=== PATIENT | male | born 1940 | race Caucasian/White ===

== ENCOUNTER 2021-01-17 21:42 | Emergency (ER) | payer MEDICARE, SELFPAY ==
[2021-01-17 22:09] VITALS: BP 128/75; PULSE 77; RESP 18; TEMP 36.9; O2SAT 97; BMI 28.6
--- NOTE | 2021-01-17 22:17 | XRR_ITS ---
PROCEDURE INFORMATION: Exam: XR Left Hand Exam date and time: 01/17/2021 10:17 PM Age: 80 years old Clinical indication: Injury or trauma; Other: Cut hand with saw; Left; Injury details: Laceration on thumb; Additional info: Laceration to top of hand TECHNIQUE: Imaging protocol: XR Left hand. Views: 3 or more views. COMPARISON: No relevant prior studies available. FINDINGS: Bandage obscures some of the bony detail of the thumb. There are degenerative changes involving the DIP joints, PIP joints and MCP joint. There are degenerative changes of the 1st carpal metacarpal joint. There is an ulnar minus variance. There is mild narrowing of the radiocarpal joint. No acute fracture is identified. There is no foreign body. XR/XR hand LT min 3V* [id number] IMPRESSION: 1. No fracture or foreign body. 2. Marked arthritic changes.
--- NOTE | 2021-01-17 22:22 | W.ED.WOUNDLC ---
HPI - Wound/Laceration General: Chief Complaint: Wound/Laceration Stated Complaint: LEFT HAND LAC Time Seen by Provider: 01/17/21 21:44 History of Present Illness: HPI narrative: Patient is a 80-year-old male comes to the ED with a left hand laceration. Injury occurred approximately 2.5 hours before arrival. Patient says he was using a concrete saw and accidentally cut the top of dorsal aspect left hand base of thumb area. Patient describes his pain is mild. Patient is on Xarelto but says he was able to get bleeding controlled before coming to the ED. patient says he is not up-to-date on his tetanus. Associated symptoms: Denies chills, fever(s), nausea or vomiting Review of Systems Const: Denies: fever(s), chills or fatigue Eyes: Denies: change in vision or eye discomfort ENMT: Denies: throat pain, odynophagia, nasal discharge or nasal congestion Card: Denies: chest pain, palpitations, edema, swelling of feet/ankles, dyspnea on exertion or orthopnea Resp: Denies: dyspnea, productive cough or non-productive cough GI: Denies: abdominal pain, nausea, vomiting, diarrhea, constipation or hematochezia : Denies: flank pain, difficulty urinating, dysuria or hematuria Musc: Denies: neck pain, back pain or extremity swelling Skin/Breast: Reports: new lesions (Laceration to left hand); Denies: rash Neuro: Denies: headache(s), numbness in extremities or weakness in extremities Physical Exam Const: COMMON NORMALS: no acute distress, patient oriented x3 and alert GENERAL APPEARANCE: cooperative and comfortable HENMT: COMMON NORMALS: normocephalic HEAD & SCALP: normocephalic MOUTH: Normal oral and palatal mucosa present THROAT: posterior oropharynx normal and uvula midline Neck/C-Spine: COMMON NORMALS: supple GENERAL: Yes normal visual inspection Resp: COMMON NORMALS: normal respiratory effort, No retractions, No use of accessory muscles and clear to auscultation bilaterally AUSCULTATION: clear to auscultation bilaterally Cardio: COMMON NORMALS: regular rate, regular rhythm, S1 normal heart sound present, S2 normal heart sound present, No gallops present (Cardio), No clicks present (Cardio), No murmurs present (Cardio) and Peripheral pulses 2+ throughout RATE: regular rate RHYTHM: regular rhythm HEART SOUNDS: S1 normal heart sound present and S2 normal heart sound present PERIPHERAL PULSES: Peripheral pulses 2+ throughout GI: COMMON NORMALS: Normal to inspection, nondistended, normoactive bowel sounds present, Soft to palpation, non-tender and no masses PALPATION: Yes Soft to palpation : COMMON NORMALS: Yes no CVA tenderness BLADDER/KIDNEY EXAM: Yes no CVA tenderness Back/Pelvis: COMMON NORMALS: no CVA tenderness Extremity: NARRATIVE EXTREMITY EXAM: Left hand shows a laceration at the dorsal aspect of base of left thumb. Laceration appears superficial and is approximately 2 cm in length and 1 cm in width. No active bleeding noted. Laceration appears superficial. Patient's neurovascular intact. Patient was able to flex thumb but was unable to extend it. Extensor pollicis brevis tendon likely damaged. GENERAL: Yes normal exam except as noted Neuro: COMMON NORMALS: patient oriented x3 and moves all extremities SENSORIUM/ORIENTATION: Yes alert Skin: NARRATIVE SKIN EXAM: Left hand shows a laceration at the dorsal aspect of base of left thumb. Laceration appears superficial and is approximately 2 cm in length and 1 cm in width. No active bleeding noted. Laceration appears superficial. Patient's neurovascular intact. Patient was able to flex thumb but was unable to extend it. GENERAL SKIN EXAM: dry skin Procedures Laceration Laceration 1: Site: hand (dorsal aspect on base of thumb) Side (If applicable): left Size (cm): 2 Description: irregular (2 cm x 1 cm rectangle shape) and clean Depth: simple, single layer and involves tendon (no visible tendon seen, but pt cannont extend thumb-possible extensor tendon damage) Local Anesthetic: lidocaine 1% and with epi Amount of anesthesia used (mL): 10 Pre-repair: irrigated extensively (With normal saline and cleaned with iodine swab) Skin layer closed with: nylon Size (cm): 4-0 Number of sutures: 8 Technique: simple, interrupted Course Vital Signs: Vital signs: Vital Signs Temperature 98.5 F 01/17/21 22:09 Pulse Rate 77 01/17/21 22:09 Respiratory Rate 18 01/17/21 22:09 Blood Pressure 128/75 01/17/21 22:09 Pulse Oximetry 97 01/17/21 22:09 MDM - Wound/Laceration MDM Narrative: Medical decision making narrative: Patient is a 80-year-old male who comes to the ED with a laceration to left hand. Laceration is about 2 cm wide by 1 cm in width and is at the base of left thumb. There is no active bleeding noted and no visible tendon laceration seen, but patient is unable to extend thumb so likely damage to Extensor pollicis brevis tendon. X-ray of left hand shows no acute fractures or foreign body seen. Laceration to left hand was irrigated extensively with normal saline and skin was cleaned with iodine wash. Lidocaine 1% with epi was used as local and 8 sutures were placed to close laceration. Patient was then put in a thumb spica splint. Patient is from the [place] area and will be going back to [place] tomorrow. He has an orthopedic doctor there that he would like to see. He said he will contact them tomorrow morning to get set up an appointment to be evaluated for tendon damage and thumb. I stressed with patient to contact his PCP or Ortho tomorrow morning to set up an appointment for his tendon in the left thumb to be evaluated ALDO. He was also discharged home with cephalexin as prophylactic treatment for deep pain in the leg. Patient understood and agreed with plan. Imaging Data^: Xray Ortho: Attestation: I personally reviewed and interpreted this imaging study as follows: My impression: Left hand x-ray?no visible fractures noted. No foreign body seen. Discharge Plan Discharge Patient Disposition: Home Clinical Impression: Hand laceration involving tendon Qualifiers: Encounter type: initial encounter Laterality: left Qualified Code(s): S61.412A - Laceration without foreign body of left hand, initial encounter Condition: Stable Prescriptions: New cephalexin 500 mg capsule 500 mg PO Q6H 7 Days Qty: 28 RF: 0 Discharge Orders: Discharge ED (Routine); Ordered 01/17/21 Ordered By: Justin Elkins Discharge Diet: Regular Discharge Activity: Limit activity as instructed Patient Instructions: Laceration (ED) Activity Restrictions/Additional Instructions: Contact your PCP or Ortho in [place] tomorrow morning to get an appointment set up for evaluation of damaged thumb tendon (extensor pollicis brevis tendon). take full course of antibiotics as prescribed. Keep laceration site clean and dry for the next 48 hours. Then after that you can clean and re-bandage daily. Watch for signs of infection such as redness, warmth, increased tenderness and puslike drainage. If you see the signs of infection return to the ED, urgent care or PCP for reevaluation. call your PCP to schedule a follow-up appointment for reevaluation and suture removal in about 7-10 days. Continue taking all home meds. Follow discharge plans as discussed. You can return to the ED if symptoms worsen. Coding Level of Care Code ED Detail Maker And Fitter for Lolita Martinez Exam Comprehensive
--- NOTE | 2021-01-17 22:29 | PC.NURSE ---
pt unable to dorsiflex left thumb, ROM otherwise intact to left UE
[2021-01-17] MEDS: cephALEXin 500 mg Capsule PO (22:40)
[2021-01-17] MEDS: tetanus-dipt-pertussis 0.5 mL SDV IM (22:41)
[2021-01-17 23:43] VITALS: BP 107/63; PULSE 79; RESP 16; O2SAT 95
== END 2021-01-17 23:46 | disposition home or self-care (01) ==
PROVIDERS: Emergency Provider Physician Assistant
DX: S61.412A Laceration without foreign body of left hand, initial encounter (principal); W27.0XXA Contact with workbench tool, initial encounter; Z23 Encounter for immunization
CPT/HCPCS: 12001; 73130; 90471; 90715; 99282

== ENCOUNTER 2023-09-13 15:20 | Inpatient (IN) | payer MEDICARE, SELFPAY ==
[2023-09-13] VITALS (8 sets, daily range): BP systolic 102–128; BP diastolic 64–90; PULSE 70–105; RESP 14–18; TEMP 36.3–36.4; O2SAT 94–97; BMI 29.7
--- NOTE | 2023-09-13 15:24 | XR_ITS ---
WS: [id number] Examination: XR chest 1V portable [id number] Reason for Exam: sob Date: September 13, 2023 Comparison: None. Findings: The heart is enlarged. The right hemidiaphragm is obscured with basilar opacity thought to be at least in part a moderate-si zed pleural effusion. Associated compressive atelectasis may be present. At the left base there is minimal infiltrate or atelectasis as well without large effusion Pulmonary venous hypertension is suspected without overt failure. Impression: There is cardiomegaly and pulmonary venous hypertension There is a dominant right-sided pleural effusion noted.
--- NOTE | 2023-09-13 15:35 | ECG_ITS ---
[facility] Test Date: 2023-09-13 Pat Name: Justin Montgomery Department: Room: Gender: Male Director Of Global Marketing: : 1940 Requested By: Tony Guerrier Order Number: [id number] Arabella MD: Shant Dangelo M.D. Measurements Intervals [place] Rate: 105 P: 0 NM: 0 QRS: 73 QRSD: 81 T: -23 QT: 337 QTc: 445 Interpretive Statements ATRIAL FIBRILLATION WITH RAPID VENTRICULAR RESPONSE LOW QRS VOLTAGE IN EXTREMITY LEADS [QRS DEFLECTION < 0.5 mV IN LIMB LEADS] ABNORMAL QRS-T ANGLE [QRS-T AXIS DIFFERENCE > 60] No previous ECG available for comparison Electronically Signed On 09-13-2023 22:11:52 CDT by Shant Dangelo M.D. [id number]
[2023-09-13 16:16] LABS: Basophils % 0.6 %; Eosinophils # 0.1 10^3/uL (0.0-0.8); Eosinophils % 0.9 %; Hematocrit 41.8 % (37-53); Lymphocytes # 0.7 10^3/uL (0.8-4.8); Mean Corpuscular HGB Conc 32.3 g/dL (30-55); Mean Corpuscular Hemoglobin 32.8 pg (27-33); Mean Corpuscular Volume 101.7 fl (82-101); Mean Platelet Volume 10.6 fL (7.4-10.4); Monocytes # 0.8 10^3/uL (0.2-0.9); Monocytes % 12.3 %; Neutrophils # 4.75 10^3/uL (1.8-7.7); Neutrophils % 74.7 %; Nucleated Red Blood Cells % 0 %; Platelet Count 116 10^3/cmm (157-399); Red Blood Count 4.11 10^6/uL (3.85-5.65); Red Cell Distribution Width 14.3 % (12.1-15.1); White Blood Count 6.36 10^3/uL (3.29-11.43)
--- NOTE | 2023-09-13 16:31 | ED_ITS ---
HPI - SOB/Dyspnea 2 General: Chief Complaint: Shortness of Breath/Dyspnea Stated Complaint: sent by quyen parekh Time Seen by Provider: 09/13/23 16:26 Source: patient Mode of arrival: ambulatory Limitations: no limitations History of Present Illness: HPI Narrative: 83-year-old male states that he has had cough congestion some increasing shortness of breath for the last 2 weeks. He has a history of A-fib he states he had recently moved here does not have a provider here. He denies any chest pains he had no fevers denies any vomiting or diarrhea. Associated symptoms: Deny abdominal pain, chest pain, fever(s), nausea or vomiting Review of Systems 2 Const: Denies: fever(s), chills, body aches or change in appetite ENMT: Denies: throat pain or dental pain Card: Denies: chest pain Resp: Reports: dyspnea and non-productive cough GI: Denies: abdominal pain, nausea, vomiting or diarrhea Musc: Denies: neck pain or back pain Skin/Breast: Denies: rash All/Imm: Denies: urticaria Physical Exam 2 Const: COMMON NORMALS: patient oriented x3 HENMT: COMMON NORMALS: normocephalic and atraumatic HEAD & SCALP: n ormocephalic and atraumatic Eye: COMMON NORMALS: conjunctivae normal CONJUNCTIVA: Yes conjunctivae normal Neck/C-Spine: COMMON NORMALS: full ROM and supple Chest: COMMONS NORMALS: normal inspection of the chest and normal palpation of entire chest wall Resp: COMMON NORMALS: No retractions and No use of accessory muscles OTHER: decreased breath sounds on right Cardio: COMMON NORMALS: No murmurs present (Cardio) RATE: tachycardic R HYTHM: abnormal rhythm irregularly irregular Extremity: COMMON NORMALS: normal to inspection and full ROM Neuro: COMMON NORMALS: patient oriented x3, moves all extremities and no focal motor deficits Psych: COMMON NORMALS: mental status grossly normal, Normal thought process present and cooperative THOUGHT PROCESS: Normal thought process present Skin: COMMON NORMALS: no rashes or lesions noted and no wounds GENERAL SKIN EXAM: no rashes or lesions noted Course 2 Vital Signs: Vital signs: Vital Signs Temperature 97.3 F L 09/13/23 15:31 Pulse Rate 90 09/13/23 17:00 Respiratory Rate 14 09/13/23 17:00 Blood Pressure 118/82 04/03/24 17:00 Pulse Oximetry 96 09/13/23 17:00 Oxygen Delivery Me thod Room Air 09/13/23 17:00 MDM - SOB/Dyspnea Medical Decision Making Patient presents with exertional dyspnea he does have a large right-sided pleural effusion he got hypoxic here with ambulation he is also has a history A- fib spoke to the hospitalist will admit at this time. Medical Records I reviewed the patient's medical records. Lab Data I reviewed the patient's lab results. 09/13/23 16:10 09/13/23 16:10 Labs/Radiology: Laboratory Results WBC 6.36 10^3/uL (3.29-11.43) 09/13/23 16:10 RBC 4.11 10^6/uL (3.85-5.65) 09/13/23 16:10 Hgb 13.50 g/dL (11.27-16.99) 09/13/23 16:10 Hct 41.8 % (37-53) 09/13/23 16:10 MCV 101.7 fl (82-101) H 09/13/23 16:10 MCH 32.8 pg (27-33) 09/13/23 16:10 MCHC 32.3 g/dL (30-55) 09/13/23 16:10 RDW 14.3 % (12.1-15.1) 09/13/23 16:10 Plt Count 116 10^3/cmm (157-399) L 09/13/23 16:10 MPV 10.6 fL (7.4-10.4) H 09/13/23 16:10 Neut % (Auto) 74.7 % 09/13/23 16:10 Lymph % (Auto) 11.0 % 09/13/23 16:10 Jennings % (Auto) 12.3 % 09/13/23 16:10 Eos % (Auto) 0.9 % 09/13/23 16:10 Baso % (Auto) 0.6 % 09/13/23 16:10 Neut # (Auto) 4.75 10^3/uL (1.8-7.7) 09/13/23 16:10 Lymph # (Auto) 0.7 10^3/uL (0.8-4.8) L 09/13/23 16:10 Jennings # (Auto) 0.8 10^3/uL (0.2-0.9) 09/13/23 16:10 Eos # (Auto) 0.1 10^3/uL (0.0-0.8) 09/13/23 16:10 Baso # (Auto) 0.0 10^3/uL (0.0-0.1) 09/13/23 16:10 Nucleated RBC % (auto) 0 % 09/13/23 16:10 Nucleated RBCs # 0.0 /100WBC 09/13/23 16:10 Sodium 141 mmol/L (136-145) 09/13/23 16:10 Potassium 4.2 mmol/L (3.5-5.1) 09/13/23 16:10 Chloride 104 mmol/L (98-107) 09/13/23 16:10 Carbon Dioxide 26 mmol/L (22-29) 09/13/23 16:10 Anion Gap 15.2 (5-19) 09/13/23 16:10 BUN 20 mg/dL (8-23) 09/13/23 16:10 Creatinine 1.0 mg/dL (0.7-1.2) 09/13/23 16:10 GFR Calculation Not Reportable 09/13/23 16:10 Glucose 115 mg/dL (65-115) 09/13/23 16:10 Calculated Osmolality 296 mOsm/kg (285-295) H 09/13/23 16:10 Calcium 9.2 mg/dL (8.5-10.5) 09/13/23 16:10 Total Bilirubin 1.1 mg/dL (0.15-1.2) 09/13/23 16:10 AST 22 U/L (0-40) 09/13/23 16:10 ALT 17 U/L (0-41) 09/13/23 16:10 Alkaline Phosphatase 184 U/L (40-130) H 09/13/23 16:10 NT-Pro-B Natriuret Pep 802 pg/mL (0-450) H 09/13/23 16:10 Total Protein 7.7 g/dL (6.6-8.7) 09/13/23 16:10 Albumin 4.1 g/dL (3.5-5.2) 09/13/23 16:10 Globulin 3.6 g/dL (1.3-4.6) 09/13/23 16:10 Influenza Type A Ag negative (Negative) 09/13/23 16:49 Influenza Type B Ag negative (Negative) 09/13/23 16:49 SARS-CoV-2 Ag (Rapid) negative (Negative) 09/13/23 16:49 All radiology interpretation(s) finalized by discharge EKG Data EKG 1: I personally reviewed and interpreted this EKG as follows: EKG Interpretation Date: 09/13/23 EKG interpretation time: 15:35 Interpretation: afib hr [address] elevation qrs 81 qtc 398 Discharge Plan Discharge Patient Disposition: Admitted As Inpatient Clinical Impression: Pleural effusion, Acute dyspnea, Atrial fibrillation Condition: Stable Coding Level of Care Code ED Reproductive Endocrinologist for Lolita Martinez
[2023-09-13 16:45] LABS: Alanine Aminotransferase 17 U/L (0-41); Albumin Level 4.1 g/dL (3.5-5.2); Alkaline Phosphatase 184 U/L (40-130); Anion Gap 15.2 (5-19); Aspartate Amino Transferase 22 U/L (0-40); Blood Urea Nitrogen 20 mg/dL (8-23); Calcium 9.2 mg/dL (8.5-10.5); Carbon Dioxide 26 mmol/L (22-29); Chloride 104 mmol/L (98-107); Creatinine Clr Calc Pharmacy 63.5493; Globulin 3.6 g/dL (1.3-4.6); Glucose 115 mg/dL (65-115); NT Pro B Type Natriuretic Pept 802 pg/mL (0-450); Osmolality Calculated 296 mOsm/kg (285-295); Potassium 4.2 mmol/L (3.5-5.1); Sodium 141 mmol/L (136-145); Total Bilirubin 1.1 mg/dL (0.15-1.2); Total Protein 7.7 g/dL (6.6-8.7)
[2023-09-13 17:13] LABS: Influenza A by IFA negative (Negative); Influenza B by IFA negative (Negative)
[2023-09-13 17:15] LABS: SARS Covid-2 Antigen negative (Negative)
[2023-09-13] MEDS: cefTRIAXone 1,000 MG in sodium chloride 0.9% (plus) 50 ML 100 MG IV (18:28)
[2023-09-13] MEDS: azithromycin 500 MG in sodium chloride 0.9% 250 ML 250 MG IV (18:54)
[2023-09-13] MEDS: FUROsemide 10 mg/mL SDV 4mL 40 MG IVP (19:18)
[2023-09-13 20:21] LABS: Erythrocyte Sedimentation Rate 17 mm/hr (0-10)
--- NOTE | 2023-09-13 20:25 | CTR_ITS ---
PROCEDURE INFORMATION: Exam: CT Chest Without Contrast; Diagnostic Exam date and time: 09/13/2023 8:36 PM Age: 83 years old Clinical indication: Shortness of breath; Prior surgery; Surgery date: 6+ months; Surgery type: Afib; Additional info: SOB TECHNIQUE: Imaging protocol: Diagnostic computed tomography of the chest without contrast. Radiation optimization: All CT scans at this facility use at least one of these dose optimization techniques: automated exposure control; mA and/or kV adjustment per patient size (includes targeted exams where dose is matched to clinical indication); or iterative reconstruction. COMPARISON: CR XR chest 1V portable [id number] 09/13/2023 3:30 PM RADIATION DOSE METRICS: Total DLP (mGy-cm): 540.6 FINDINGS: Lungs: 3 mm right upper lobe nodule. Atelectasis and partial collapse of the right middle and lower lobes. Calcified granulomas in the right lung. 2 mm and 3 mm left upper lobe nodules. Multiple 3-5 mm left lower lobe nodules. The left lung is otherwise clear. Pleural spaces: Medium size right pleural effusion. No pneumothorax. Heart: Mild cardiomegaly. Dense anterior, posterior, and inferior pericardial calcifications. No pericardial effusion. Coronary arteries: Coronary artery calcifications. Lymph nodes: Calcified mediastinal and right hilar lymph nodes. 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 Spleen: Calcified granulomas in the spleen with a splenule. Kidneys and ureters: Right renal cysts, Hounsfield units less than 20. No follow-up imaging recommended. Bones/joints: Degenerative changes of the thoracic spine. No acute fracture. Mild thoracolumbar curvature. Soft tissues: Unremarkable. CT/CT chest wo con [id number] IMPRESSION: 1. Medium right pleural effusion. 2. Atelectasis and partial collapse of the right middle and lower lobes. 3. Multiple pulmonary nodules measuring up to 5 mm. For patients at low risk (minimal or absent history of smoking and of other known risk factors), no routine follow-up is indicated. For patients at high risk (history of smoking or of other known risk factors), consider optional CT Chest at 12 months. (Reference: Megan) References: Megan Felipe et al. Guidelines for Management of Incidental Pulmonary Nodules Detected on CT Images: From the Fleischner Society 2017. Radiology. 2017;284(1):228-243. COMMENTS: Consistent with the [place] [employer]'s Incidental Findings Committee white paper (J Am Tisha Radiol 2018): Any incidental renal lesion less than 1 cm or classified as too small to characterize, or any incidental cystic renal lesion characterized as simple-appearing, is likely benign. No follow-up imaging is recommended for these lesions per consensus recommendations based on imaging criteria.
--- NOTE | 2023-09-13 20:25 | USCV_ITS ---
Justin Montgomery Age: 83 Gender: M : 1940 Exam Date: 09/13/2023 20:52 Ordering Phys: Randell Hendrickson MD Technologist: [place]am [place] [facility] [place]: chest pain BP: 143 / 76 HR: 92 Rhythm: Sinus Technical Quality: Adequate MEASUREMENTS (Male / Female) Normal Values 2D ECHO LV Diastolic Diameter PLAX 4.0 cm 4.2 - 5.9 / 3.9 - 5.3 cm IVS Diastolic Thickness 1.7 cm 0.6 - 1.0 / 0.6 - 0.9 cm IVS Systolic Thickness 1.5 cm LVPW Diastolic Thickness 1.5 cm 0.6 - 1.0 / 0.6 - 0.9 cm LVPW Systolic Thickness 1.4 cm LVOT Diameter 2.1 cm LV Ejection Fraction 2D Teich 49.7 % LV Ejection Fraction MOD 2C 60.8 % LV Ejection Fraction 2C AL 61.3 % LA Diameter 5.1 cm RA Systolic Volume 4C AL 47.6 ml RA Systolic Volume 4C MOD 44.6 ml Aorta at Sinotubular Diameter 3.9 cm IVC Diameter 3.0 cm DOPPLER LVOT Peak Velocity 63.0 cm/s AV Area Cont Eq vti 2.3 cm squared AV Area Cont Eq pk 3.3 cm squared MV Area PHT 4.7 cm squared Mitral E to A Ratio 2.9 TV Peak Velocity 201.0 cm/s TR Peak Velocity 284.0 cm/s TR Peak Gradient 32.3 mmHg TV Peak E Velocity 77.0 cm/s Right Atrial Pressure 3.0 mmHg Pulmonary Artery Systolic Pressu 35.3 mmHg PV Peak Velocity 85.0 cm/s FINDINGS Left Ventricle Diffuse hypokinesia of the left ventricule with an ejection fraction around 45%, visual Right Ventricle Normal RV size with a slightly diminished ejection fraction Right Atrium Moderately increased right atrial size. Left Atrium Moderately increased left atrial size. Mitral Valve At least moderate eccentric mitral regurgitation with mild prolapse of the anterior mitral leaflet.moderate mitral annular calcification. Aortic Valve No gross abnormalities noted Tricuspid Valve [id number] tricuspid valve regurgitation. Estimated pulmonary artery peak systolic pressure 47 mmHg Pulmonic Valve No gross abnormalities noted Pericardium No pericardial effusion. Aorta Normal aortic annulus size. IVC Dilated IVC with decreased respiratory variation. CONCLUSIONS Diffuse hypokinesia of the left ventricule with an ejection fraction around 45%, (visual). Moderate biatrial enlargement At least moderate eccentric mitral regurgitation with mild prolapse of the anterior mitral leaflet. Moderate mitral annular calcification. [id number] tricuspid valve regurgitation. Estimated pulmonary artery peak systolic pressure 47 mmHg There are no intracardiac masses. Technically somewhat difficult study Dr Hubert Stevenson MD [facility] (Electronically Signed) Final Date: 14 September 2023 00:11 S
[2023-09-13] MEDS: pantoprazole 40 mg SDV IVP (20:27)
--- NOTE | 2023-09-13 20:29 | PM.HP ---
Providers/Chief Complaint Admitting Physician: Isabella Plaza MD Chief Complaint: sent by quyen parekh History of Present Illness Justin Montgomery is a 83 year old male With a past medical history of atrial fibrillation, history of cardioversion in the past, history of failed Watchman procedure, history of hypothyroidism, has been without his levothyroxine for a few months, virtually from [place], moved down to [place] in the last 8 months, who presents [facility] due to a few days history of cough, congestion, shortness of breath. Patient tells me that he has had cough, dry cough, congestion, shortness of breath for the last few days. Does report increased shortness of breath, no lower extreme edema no chest pain, does report shortness of breath with exertion. No sick contacts, no recent travel. Denies any hemoptysis no calf pain, no calf swelling. We discussed his right pleural effusion, he tells me that he has had it drained in the past, this was when he was in [place], testing came back negative for any malignancy, they told me it was just fluid he tells me, denies history of CAD no history of CHF Review of Systems Const: Reports: fatigue; Denies: fever(s) or chills Card: Denies: chest pain Resp: Reports: dyspnea GI: Denies: abdominal pain Medications/Allergies Allergies Allergy/AdvReac Type Severity Reaction Status Date / Time No Known Allergies Allergy Verified 09/13/23 15:34 PFSH Acute PFSH: Medical History (Updated 09/13/23 @ 20:35 by Randell Hendrickson MD) Shortness of breath Atrial fibrillation Surgical History (Updated 09/13/23 @ 20:30 by Randell Hendrickson MD) No pertinent past surgical history Family History (Updated 09/13/23 @ 20:30 by Randell Hendrickson MD) Mother Rheumatic fever CAD (coronary artery disease) Social History (Updated 09/13/23 @ 20:30 by Randell Hendrickson MD) Smoking and tobacco/nicotine status: never used tobacco/nicotine Alcohol intake: never Substance/Drug Use: never Vitals/I&O/Wt Last Vital Signs Temp 97.3 F L 09/13/23 15:31 Pulse 70 09/13/23 18:32 Resp 17 09/13/23 18:32 BP 122/90 04/03/24 18:32 Pulse Ox 96 09/13/23 18:32 O2 Del Method Room Air 09/13/23 19:35 09/13/23 09/13/23 09/13/23 06:59 14:59 22:59 Intake Total 300 / 300 Balance 300 / 300 Weight last 48 hrs Weight 91.285 kg Weight 91.172 kg Physical Exam Const: COMMON NORMALS: no acute distress and patient oriented x3 Eye: COMMON NORMALS: Equal, round and reactive pupils present Neck/C-Spine: COMMON NORMALS: no lymphadenopathy Resp: COMMON NORMALS: normal respiratory effort, No retractions and No use of accessory muscles AUSCULTATION: crackles and wheezes Cardio: COMMON NORMALS: regular rate, S1 normal heart sound present and S2 normal heart sound present RATE: regular rate RHYTHM: abnormal rhythm HEART SOUNDS: S1 normal heart sound present and S2 normal heart sound present GI: COMMON NORMALS: Normal to inspection, nondistended, normoactive bowel sounds present, Soft to palpation and non-tender Extremity: COMMON NORMALS: no calf tenderness and no pedal edema Neuro: COMMON NORMALS: patient oriented x3, CN's II-XII intact bilaterally and moves all extremities Psych: COMMON NORMALS: mental status grossly normal Data 09/13/23 16:10 09/13/23 16:10 Micro: Microbiology 09/13/23 18:20 Blood Culture - Preliminary Blood SPECIMEN COLLECTED 09/13/23 18:26 Blood Culture - Preliminary Blood SPECIMEN COLLECTED A&P Assessment and plan (1) Atrial fibrillation: (2) Pleural effusion: (3) Shortness of breath: Plan shortness of breath ? Etiology likely multifactorial ? Possibility of pneumonia, no leukocytosis, Pro-Murtaza, CRP pending, chest x-ray shows large right pleural effusion, could have a right lower lobe pneumonia obscured by pleural effusion with patient's symptomatology, he has received Rocephin and azithromycin in the emergency room, I will continue this, add on respiratory viral panel, sputum cultures ? Possibility of fluid overload does have crackles on exam no lower extremity edema, does have a right pleural effusion, has received 40 mg IV Lasix in the emergency room will continue 40 mg IV Lasix ? Order CT of the chest, ? Cardiac echo, ? Troponin series, telemetry monitoring ? Hypothyroidism patient is without levothyroxine for a few months, check TSH, T3, T4 resume his home dose of levothyroxine 100 mcg once daily ? Will hold Xarelto for now, just in case he needs a thoracocentesis for right pleural effusion, for pleural fluid analysis, pending CT of the chest and ultrasound thoracocentesis ? Full code, ? SCDs for DVT prophylaxis, Xarelto on hold and plans for possible thoracocentesis Attestations Medical Necessity Statement*: Patient requires hospitalization, inpatient, greater than 2 midnights, for shortness of breath, concerns for CHF exacerbation, pneumonia, right pleural effusion Diagnoses Atrial fibrillation I48.91 Pleural effusion J90 Shortness of breath R06.02
[2023-09-13 20:32] LABS: C Reactive Protein 7.3 mg/L (0.0-4.9)
[2023-09-13 21:01] LABS: Troponin(5th) Baseline 10 ng/L (0-15)
[2023-09-13 21:10] LABS: Free T4 Free Thyroxine 1.03 ng/dL (0.82-1.77); T3 Free 2.6 PG/ML (2.0-4.4)
[2023-09-13 21:43] LABS: Procalcitonin 0.04 ng/mL (0-0.5)
[2023-09-13 22:27] LABS: Troponin 5 2HR 10.78 ng/L (0-15); Troponin 5 2HR Delta 0.78 ABS# (0-10)
--- NOTE | 2023-09-13 22:46 | ECG_ITS ---
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 Measurements Intervals [place] Rate: 95 P: 0 TN: 0 QRS: 75 QRSD: 94 T: -17 QT: 354 QTc: 446 Interpretive Statements ATRIAL FIBRILLATION WITH ABERRANT CONDUCTION OR VENTRICULAR PREMATURE COMPLEXES LOW QRS VOLTAGE IN EXTREMITY LEADS [QRS DEFLECTION < 0.5 mV IN LIMB LEADS] ABNORMAL QRS-T ANGLE [QRS-T AXIS DIFFERENCE > 60] Compared to ECG 09/13/2023 15:35:31 Ventricular premature complex(es) now present Aberrant conduction of supraventricular beat(s) now present Electronically Signed On 09-14-2023 14:09:48 CDT by Hubert Stevenson M.D. [id number]
[2023-09-14] VITALS (12 sets, daily range): BP systolic 100–119; BP diastolic 56–78; PULSE 64–102; RESP 16–18; TEMP 36.7–37.2; O2SAT 90–97
[2023-09-14 00:22] LABS: Add Urine Microscopic? YES; Bilirubin Urine Neg (Negative); Blood Urine 3+ (Negative); Glucose Urine UA Norm (Normal); Ketones Urine Negative (Negative); Leukocyte Esterase Urine Negative (Negative); Nitrate Urine Negative (Negative); Protein Urine Neg (Negative); Specific Gravity, Urine 1.015 (1.005-1.030); Urine Appearance Hazy (CLEAR); Urine Color Yellow (Yellow); Urobilinogen Urine Neg (Negative); pH Urine 5 (5-7)
[2023-09-14 00:23] LABS: Add Urine Culture? Yes; Bacteria Urine TRACE /hpf; Mucus Urine 2+ /hpf; RBC Urine 50-80 /hpf (0-2)
[2023-09-14 00:58] LABS: Adenovirus Not Detected (NOT DETECT); Chlamydia Pneumoniae Not Detected (NOT DETECT); Coronavirus 229E,HKU1,NL63,OC4 Not Detected (NOT DETECT); Human Metapneumovirus Not Detected (NOT DETECT); Human Rhinovirus/Enterovirus Not Detected (NOT DETECT); Influenza A Not Detected (NOT DETECT); Influenza A H1 Not Detected (NOT DETECT); Influenza A H1-2009 Not Detected (NOT DETECT); Influenza A H3 Not Detected (NOT DETECT); Influenza B Not Detected (NOT DETECT); Mycoplasma Pneumoniae Not Detected (NOT DETECT); Parainfluenza Virus Type 1 Not Detected (NOT DETECT); Parainfluenza Virus Type 2 Not Detected (NOT DETECT); Parainfluenza Virus Type 3 Not Detected (NOT DETECT); Parainfluenza Virus Type 4 Not Detected (NOT DETECT); Respiratory Syncytial Virus A Not Detected (NOT DETECT); Respiratory Syncytial Virus B Not Detected (NOT DETECT); SARS-COV-2 Not Detected (NOT DETECT)
[2023-09-14 02:15] LABS: Basophils # 0.1 10^3/uL (0.0-0.1); Basophils % 0.7 %; Eosinophils # 0.2 10^3/uL (0.0-0.8); Eosinophils % 2.2 %; Hematocrit 38.2 % (37-53); Lymphocytes # 0.8 10^3/uL (0.8-4.8); Lymphocytes % 12.1 %; Mean Corpuscular HGB Conc 32.2 g/dL (30-55); Mean Corpuscular Hemoglobin 32.3 pg (27-33); Mean Corpuscular Volume 100.3 fl (82-101); Mean Platelet Volume 10.3 fL (7.4-10.4); Monocytes % 15.2 %; Neutrophils # 4.75 10^3/uL (1.8-7.7); Neutrophils % 69.5 %; Nucleated Red Blood Cells % 0 %; Platelet Count 113 10^3/cmm (157-399); Red Blood Count 3.81 10^6/uL (3.85-5.65); Red Cell Distribution Width 14.2 % (12.1-15.1); White Blood Count 6.84 10^3/uL (3.29-11.43)
[2023-09-14 02:28] LABS: INR 1.77 (0.8-1.2)
[2023-09-14 02:30] LABS: Estmated Average Glucose 111; Hemoglobin A1C 5.5 % (4.0-6.0)
[2023-09-14 02:35] LABS: Troponin 5 6HR 11.65 ng/L (0-15); Troponin 5 6HR Delta 1.65 ng/L (0-12)
[2023-09-14 02:45] LABS: Cholesterol 115 mg/dL (0-200); HDL Cholesterol 46 mg/dL (60-100); LDL Cholesterol Calculated 59 mg/dL (50-129); LDL HDL Ratio 1.28 RATIO (0.00-3.22); NT Pro B Type Natriuretic Pept 832 pg/mL (0-450); Triglycerides 48 mg/dL (0-150)
[2023-09-14 02:46] LABS: Alanine Aminotransferase 16 U/L (0-41); Alkaline Phosphatase 170 U/L (40-130); Anion Gap 13.8 (5-19); Aspartate Amino Transferase 19 U/L (0-40); Blood Urea Nitrogen 20 mg/dL (8-23); Calcium 8.8 mg/dL (8.5-10.5); Carbon Dioxide 28 mmol/L (22-29); Chloride 103 mmol/L (98-107); Creatinine Clr Calc Pharmacy 57.8052; Globulin 2.8 g/dL (1.3-4.6); Glucose 144 mg/dL (65-115); Osmolality Calculated 297 mOsm/kg (285-295); Phosphorus 3.5 mg/dL (2.5-4.5); Potassium 3.8 mmol/L (3.5-5.1); Sodium 141 mmol/L (136-145); Thyroid Stimulating Hormone 6.74 uIU/mL (0.27-4.20); Total Bilirubin 0.9 mg/dL (0.15-1.2); Total Protein 6.8 g/dL (6.6-8.7)
--- NOTE | 2023-09-14 07:39 | PC.PHAR ---
PTS' SPOUSE STATES HE TAKES BOTH HIS MEDICATIONS AT NIGHT.
[2023-09-14] MEDS: FUROsemide 10 mg/mL SDV 4mL 40 MG IVP (08:41)
[2023-09-14] MEDS: levothyroxine 100 mcg Tablet PO ×2 (08:42→17:45)
--- NOTE | 2023-09-14 10:00 | US_ITS ---
WS: [id number] ULTRASOUND-GUIDED THORACENTESIS HISTORY: right pleural effusion Procedure, risks, and complications were explained to the patient. With the patient in an upright pos ition, the skin over the RIGHT posterior thorax was cleansed with ChloraPrep and anesthetized with 1% buffered lidocaine. A 5 Niuean Yueh needle is inserted into the pleural fluid without complication. Approximately 700 cc of clear pleural fluid is removed without difficulty. Pleural fluid specimen collected for analysis as requested. IMPRESSION: 1. RIGHT thoracentesis yielding 700 cc of fluid. 2. Chest radiograph to follow to evaluate for pneumothorax.
--- NOTE | 2023-09-14 10:05 | XR_ITS ---
WS: [id number] Examination: XR chest 1V portable [id number] Reason for Exam: post thora Date: September 14, 2023 Comparison: September 13, 2023 Findings: The heart is enlarged In the interval the right pleural effusion has diminished. Basilar consolidation persists. The right hilum appears enlarged on this study. No pneumothorax is seen following thoracentesis. Minimal left basilar opacity persists. Impression: There is no pneumothorax following the right thoracentesis. A small amount of right effusion with bas ilar consolidation persists. The right hilum is prominent. The heart is enlarged.
[2023-09-14 10:47] LABS: Color, Body Fluid YELLOW
[2023-09-14 10:48] LABS: Apprearance, Body Fluid CLEAR; Cyto Order Verification Order Verified; PATH Referral YES
[2023-09-14 10:49] LABS: Fluid Laterality PLEURAL EFFUSION
[2023-09-14 10:53] LABS: Body Fluid Polynuclear #Cells 0.019; Body Fluid WBC 241 /uL; Monocytes # Body Fluid 0.222; RBC, Body Fluid 0 10^3/uL
[2023-09-14 11:15] LABS: Creatinine Body Fluid 0.97 (0.7-1.2); Triglycerides, Pleural Fluid 10 mg/dL
[2023-09-14 11:16] LABS: LDH Pleural Fluid 94 U/L; Total Protein Pleural Fluid 3.2 g/dL
--- NOTE | 2023-09-14 15:32 | PM.PN ---
Subjective Subjective: Patient underwent thoracentesis today with removal of 700 cc of pleural fluid. Effusion is transudative based on lights criteria. Medications: Reviewed: Yes Vitals/I&O/Wt Last Vital Signs Temp 98.4 F 09/14/23 11:12 Pulse 87 09/14/23 11:12 Resp 17 09/14/23 11:12 BP 103/65 09/14/23 11:12 Pulse Ox 94 09/14/23 11:12 O2 Del Method Room Air 09/14/23 11:12 09/14/23 09/14/23 09/14/23 06:59 14:59 22:59 Intake Total 120 / 540 360 / 360 Output Total 240 / 240 Balance 120 / -360 120 / 120 Weight last 48 hrs Weight 91.285 kg Weight 91.285 kg Weight 91.172 kg Physical Exam Narrative: General: No acute distress, AO x3 HEENT: PERRLA, pupils bilaterally equal and reactive, pallors not present Chest: Normal vesicular breath sounds, no added sounds, equal good air entry bilaterally CVS: S1-S2 regular, no murmurs, no tachycardia, no gallops, no rubs Abdomen: Soft, nontender, no organomegaly, bowel sounds present Neuro: No focal deficits, no facial deformity, AO x3, power 5/5 in all limbs Extremities: No edema clubbing or cyanosis. Data 09/14/23 02:07 09/14/23 02:07 Micro: Microbiology 09/13/23 18:20 Blood Culture - Preliminary Blood SPECIMEN COLLECTED 09/13/23 18:26 Blood Culture - Preliminary Blood SPECIMEN COLLECTED A&P Assessment and plan (1) Atrial fibrillation: (2) Pleural effusion: (3) Shortness of breath: (4) Heart failure: Qualifiers: Heart failure type: systolic Heart failure chronicity: acute Qualified Code(s): I50.21 - Acute systolic (congestive) heart failure Plan shortness of breath ? Etiology likely multifactorial ? Possibility of pneumonia, no leukocytosis, Pro-Murtaza, CRP pending, chest x-ray shows large right pleural effusion, could have a right lower lobe pneumonia obscured by pleural effusion with patient's symptomatology, he has received Rocephin and azithromycin in the emergency room, I will continue this, add on respiratory viral panel, sputum cultures ? Possibility of fluid overload does have crackles on exam no lower extremity edema, does have a right pleural effusion, has received 40 mg IV Lasix in the emergency room will continue 40 mg IV Lasix ? Order CT of the chest, ? Cardiac echo, ? Troponin series, telemetry monitoring ? Hypothyroidism patient is without levothyroxine for a few months, check TSH, T3, T4 resume his home dose of levothyroxine 100 mcg once daily ? Will hold Xarelto for now, just in case he needs a thoracocentesis for right pleural effusion, for pleural fluid analysis, pending CT of the chest and ultrasound thoracocentesis ? Full code, ? SCDs for DVT prophylaxis, Xarelto on hold and plans for possible thoracocentesis Plan for today: September 14, 2023. Status post thoracentesis earlier today with removal of 700 cc fluid. Protein From pleural fluid at 3.2. LDH at 94. Overall consistent with transudative effusion. Echocardiogram was completed. LVEF of 45% with diffuse hypokinesia. No past results available to compare. There is moderate biatrial enlargement. There is moderate eccentric mitral regurgitation with mild prolapse of the anterior mitral leaflet. Mild to moderate tricuspid valve regurgitation with PASP of 47 mmHg. Overall clinical picture compatible with that of reduced ejection fraction heart failure. Unknown chronicity. Patient has not followed up with a insurance underwriting assistant since the past several years. He is new to the area having moved recently from [place]. Continue Lasix 40 mg IV daily. Monitor urine output and kidney function with diuresis. Less likely to be infective in nature. Resume Xarelto today. Troponin series overall unremarkable. Less likely to be acute coronary syndrome, suspect that EF abnormality is likely chronic. Will need to be established as outpatient with cardiology. Start beta-blockers, HR ranging up to 102 during hospital course. Blood pressure permitting, would attempt to add NANCY versus ARB prior to discharge. Attestations Medical Necessity Statement*: ongoing need for iv diuresis, management of CHF Coding Level of Care Code Acute Code for [facility] Fwd Diagnoses Atrial fibrillation I48.91 Pleural effusion J90 Shortness of breath R06.02 Acute systolic heart failure I50.21 Heart failure type: systolic Heart failure chronicity: acute
[2023-09-14] MEDS: carvedilol 3.125 mg Tablet PO (17:46)
[2023-09-14] MEDS: cefTRIAXone 1,000 MG in sodium chloride 0.9% (plus) 50 ML 100 MG IV (17:46)
[2023-09-14] MEDS: rivaroxaban 10 mg Tablet 20 MG PO (17:46)
[2023-09-14] MEDS: azithromycin 500 MG in sodium chloride 0.9% 250 ML 250 MG IV (20:19)
[2023-09-14] MEDS: pantoprazole 40 mg SDV IVP (20:19)
[2023-09-15] VITALS (7 sets, daily range): BP systolic 98–120; BP diastolic 58–76; PULSE 76–96; RESP 16–17; TEMP 36.6–37.2; O2SAT 87–95
[2023-09-15 04:50] LABS: Basophils % 0.4 %; Eosinophils # 0.1 10^3/uL (0.0-0.8); Eosinophils % 0.6 %; Hematocrit 39.8 % (37-53); Lymphocytes % 10.9 %; Mean Corpuscular HGB Conc 32.4 g/dL (30-55); Mean Corpuscular Volume 98.8 fl (82-101); Mean Platelet Volume 10.8 fL (7.4-10.4); Monocytes # 1.4 10^3/uL (0.2-0.9); Monocytes % 15.4 %; Neutrophils % 72.3 %; Nucleated Red Blood Cells % 0 %; Platelet Count 139 10^3/cmm (157-399); Red Blood Count 4.03 10^6/uL (3.85-5.65); Red Cell Distribution Width 14.1 % (12.1-15.1); White Blood Count 8.99 10^3/uL (3.29-11.43)
[2023-09-15 05:00] LABS: INR 3.93 (0.8-1.2)
[2023-09-15 05:07] LABS: Alanine Aminotransferase 14 U/L (0-41); Albumin Level 3.6 g/dL (3.5-5.2); Alkaline Phosphatase 163 U/L (40-130); Anion Gap 14.1 (5-19); Aspartate Amino Transferase 17 U/L (0-40); Blood Urea Nitrogen 27 mg/dL (8-23); Calcium 8.7 mg/dL (8.5-10.5); Carbon Dioxide 28 mmol/L (22-29); Chloride 102 mmol/L (98-107); Globulin 3.5 g/dL (1.3-4.6); Glucose 122 mg/dL (65-115); Magnesium 1.9 mg/dL (1.7-2.3); Osmolality Calculated 296 mOsm/kg (285-295); Phosphorus 3.6 mg/dL (2.5-4.5); Potassium 4.1 mmol/L (3.5-5.1); Sodium 140 mmol/L (136-145); Total Bilirubin 1.3 mg/dL (0.15-1.2); Total Protein 7.1 g/dL (6.6-8.7)
[2023-09-15] MEDS: levothyroxine 100 mcg Tablet PO (05:09)
--- NOTE | 2023-09-15 14:22 | P.DS_ITS ---
Discharge Providers Date of Admission: 09/13/23 19:01 Date of Discharge: September 15, 2023 Attending Provider at Admission: Isabella Plaza MD Attending Provider at Discharge: Isabella Plaza MD Diagnoses at Discharge Discharge Diagnosis (1) Atrial fibrillation: Status: Acute (2) Pleural effusion: Status: Acute (3) Shortness of breath: Status: Acute (4) Heart failure: Status: Acute Qualifiers: Heart failure type: systolic Heart failure chronicity: acute Qualified Code(s): I50.21 - Acute systolic (congestive) heart failure Reason for Visit Reason for Visit: sent by quyen parekh Hospital Course Hospital Course Justin Montgomery is a 83 year old male With a past medical history of atrial fibrillation, history of cardioversion in the past, history of failed Watchman procedure, history of hypothyroidism, has been without his levothyroxine for a few months, virtually from [place], moved down to [place] in the last 8 months, who presents [facility] due to a few days history of cough, congestion, shortness of breath. No sick contacts, no recent travel. Denies any hemoptysis no calf pain, no calf swelling. He found to have a right pleural effusion for which she underwent thoracentesis with drainage of 700 cc fluid on September 14, 2023. No pneumothorax postoperatively. Lights criteria was consistent with a transudative effusion. He received diuresis with IV Lasix in the admission course, transition to Lasix 20 mg p.o. daily. Xarelto was resumed after thoracentesis was completed. Echocardiogram performed in the hospital showed diffuse hypokinesia of the left ventricle with an EF of around 45%. There was moderate biatrial enlargement. Mild to moderate tricuspid regurgitation. Estimated PASP of 47 mmHg. There were no prior echocardiograms to compare. Patient denies any known history of CAD. EKG and troponin series were without any signs of ACS. Overall clinical impression was that of acute on chronic CHF exacerbation, however cannot comment on the chronicity currently given lack of prior medical records. Carvedilol 3.125 mg twice daily was added. Not uptitrated at this time given soft blood pressures. Additionally NANCY and ARB's were not added at this point due to soft blood pressure. Recommended to follow-up with cardiology within 1 week for A-fib, CHF, abnormal echocardiogram. Physical Exam Narrative: General: No acute distress, AO x3 HEENT: PERRLA, pupils bilaterally equal and reactive, pallors not present Chest: Normal vesicular breath sounds, no added sounds, equal good air entry b ilaterally CVS: S1-S2 regular, no murmurs, no tachycardia, no gallops, no rubs Abdomen: Soft, nontender, no organomegaly, bowel sounds present Neuro: No focal deficits, no facial deformity, AO x3, power 5/5 in all limbs Extremities: No edema clubbing or cyanosis Discharge Data Studies Completed and Pending Completed Studies During Hospitalization Category Date Time Status CT chest wo con [id number] Stat Cat Scan 09/13/23 20:25 Completed XR chest 1V portable [id number] Stat Exams 09/13/23 15:24 Completed XR chest 1V portable [id number] Stat Exams 09/14/23 10:05 Completed CV. echo complete* [id number] Routine Ultrasound 09/13/23 20:25 Completed US thoracentesis [id number] Routine Ultrasound 09/14/23 10:00 Completed Pending at discharge Category Date Time Status Amylase, Pleural Fluid Routine Lab 09/13/23 20:38 Received Blood Culture Stat Lab 09/13/23 18:20 Results Body Fluid Culture & GS Routine Lab 09/13/23 20:38 Results Complete Blood Count w/Auto AM LABS Lab 09/16/23 04:00 Ordered Comprehensive Metabolic Panel AM LABS Lab 09/16/23 04:00 Ordered Magnesium AM LABS Lab 09/16/23 04:00 Ordered Mycobacteria, Culture w/Fluor Routine Lab 09/13/23 20:38 Received Phosphorus AM LABS Lab 09/16/23 04:00 Ordered Prothrombin Time INR AM LABS Lab 09/16/23 04:00 Ordered Sputum Culture and Gram Stain Stat Lab 09/13/23 20:25 Uncollected Urine Culture Routine Lab 09/13/23 23:15 Results Cytology [PTH] Routine Pth 09/13/23 20:38 Received Radiology Impressions Chest CT 09/13/23 20:25 IMPRESSION: 1. Medium right pleural effusion. 2. Atelectasis and partial collapse of the right middle and lower lobes. 3. Multiple pulmonary nodules measuring up to 5 mm. For patients at low risk (minimal or absent history of smoking and of other known risk factors), no routine follow-up is indicated. For patients at high risk (history of smoking or of other known risk factors), consider optional CT Chest at 12 months. (Reference: Megan) References: Megan Felipe et al. Guidelines for Management of Incidental Pulmonary Nodules Detected on CT Images: From the Fleischner Society 2017. Radiology. 2017;284(1):228-243. COMMENTS: Consistent with the [employer]'s Incidental Findings Committee white paper (J Am Tisha Radiol 2018): Any incidental renal lesion less than 1 cm or classified as too small to characterize, or any incidental cystic renal lesion characterized as simple-appearing, is likely benign. No follow-up imaging is recommended for these lesions per consensus recommendations based on imaging criteria. Laboratory Results WBC 8.99 10^3/uL (3.29-11.43) 09/15/23 04:37 RBC 4.03 10^6/uL (3.85-5.65) 09/15/23 04:37 Hgb 12.90 g/dL (11.27-16.99) 09/15/23 04:37 Hct 39.8 % (37-53) 09/15/23 04:37 MCV 98.8 fl (82-101) 09/15/23 04:37 MCH 32.0 pg (27-33) 09/15/23 04:37 MCHC 32.4 g/dL (30-55) 09/15/23 04:37 RDW 14.1 % (12.1-15.1) 09/15/23 04:37 Plt Count 139 10^3/cmm (157-399) L 09/15/23 04:37 MPV 10.8 fL (7.4-10.4) H 09/15/23 04:37 Neut % (Auto) 72.3 % 09/15/23 04:37 Lymph % (Auto) 10.9 % 09/15/23 04:37 [place] % (Auto) 15.4 % 09/15/23 04:37 Eos % (Auto) 0.6 % 09/15/23 04:37 Baso % (Auto) 0.4 % 09/15/23 04:37 Neut # (Auto) 6.50 10^3/uL (1.8-7.7) 09/15/23 04:37 Lymph # (Auto) 1.0 10^3/uL (0.8-4.8) 09/15/23 04:37 [place] # (Auto) 1.4 10^3/uL (0.2-0.9) H 09/15/23 04:37 Eos # (Auto) 0.1 10^3/uL (0.0-0.8) 09/15/23 04:37 Baso # (Auto) 0.0 10^3/uL (0.0-0.1) 09/15/23 04:37 Nucleated RBC % (auto) 0 % 09/15/23 04:37 Nucleated RBCs # 0.0 /100WBC 09/15/23 04:37 Differential Comment Yes 09/14/23 10:15 ESR 17 mm/hr (0-10) H 09/13/23 16:10 PT 40.00 SECONDS (12.1-14.9) H D 09/15/23 04:37 INR 3.93 (0.8-1.2) H 09/15/23 04:37 Sodium 140 mmol/L (136-145) 09/15/23 04:37 Potassium 4.1 mmol/L (3.5-5.1) 09/15/23 04:37 Chloride 102 mmol/L (98-107) 09/15/23 04:37 Carbon Dioxide 28 mmol/L (22-29) 09/15/23 04:37 Anion Gap 14.1 (5-19) 09/15/23 04:37 BUN 27 mg/dL (8-23) H 09/15/23 04:37 Creatinine 1.2 mg/dL (0.7-1.2) 09/15/23 04:37 GFR Calculation Not Reportable 09/15/23 04:37 Glucose 122 mg/dL (65-115) H 09/15/23 04:37 Estimat Average Glucose 111 09/14/23 02:07 Hemoglobin A1c 5.5 % (4.0-6.0) 09/14/23 02:07 Calculated Osmolality 296 mOsm/kg (285-295) H 09/15/23 04:37 Calcium 8.7 mg/dL (8.5-10.5) 09/15/23 04:37 Phosphorus 3.6 mg/dL (2.5-4.5) 09/15/23 04:37 Magnesium 1.9 mg/dL (1.7-2.3) 09/15/23 04:37 Total Bilirubin 1.3 mg/dL (0.15-1.2) H 09/15/23 04:37 AST 17 U/L (0-40) 09/15/23 04:37 ALT 14 U/L (0-41) 09/15/23 04:37 Alkaline Phosphatase 163 U/L (40-130) H 09/15/23 04:37 Troponin T Baseline 10 ng/L (0-15) 09/13/23 20:28 Troponin T 120 Minute 10.78 ng/L (0-15) 09/13/23 21:57 Delta Troponin T 0.78 ABS# (0-10) 09/13/23 21:57 Troponin T Hi Sens 6Hr 11.65 ng/L (0-15) 09/14/23 02:07 Troponin T Hi Sens 6Hr Delta 1.65 ng/L (0-12) 09/14/23 02:07 C-Reactive Protein 7.3 mg/L (0.0-4.9) H 09/13/23 16:10 NT-Pro-B Natriuret Pep 832 pg/mL (0-450) H 09/14/23 02:07 Total Protein 7.1 g/dL (6.6-8.7) 09/15/23 04:37 Albumin 3.6 g/dL (3.5-5.2) 09/15/23 04:37 Globulin 3.5 g/dL (1.3-4.6) 09/15/23 04:37 Triglycerides 48 mg/dL (0-150) 09/14/23 02:07 Cholesterol 115 mg/dL (0-200) 09/14/23 02:07 LDL Cholesterol, Calc 59 mg/dL (50-129) 09/14/23 02:07 HDL Cholesterol 46 mg/dL (60-100) L 09/14/23 02:07 LDL/HDL Ratio 1.28 RATIO (0.00-3.22) 09/14/23 02:07 Cholesterol/HDL Ratio 2.50 mg/dL (1.0-5.00) 09/14/23 02:07 Procalcitonin 0.04 ng/mL (0-0.5) 09/13/23 16:10 TSH 6.74 uIU/mL (0.27-4.20) H 09/14/23 02:07 Free T4 1.03 ng/dL (0.82-1.77) 09/13/23 20:28 Free T3 2.6 PG/ML (2.0-4.4) 09/13/23 20:28 Urine Color Yellow (Yellow) 09/13/23 23:15 Urine Appearance Hazy (CLEAR) A 09/13/23 23:15 Urine pH 5 (5-7) 09/13/23 23:15 Ur Specific [place] 1.015 (1.005-1.030) 09/13/23 23:15 Urine Protein Neg (Negative) 09/13/23 23:15 Urine Glucose (UA) Norm (Normal) 09/13/23 23:15 Urine Ketones Negative (Negative) 09/13/23 23:15 Urine Blood 3+ (Negative) H 09/13/23 23:15 Urine Nitrate Negative (Negative) 09/13/23 23:15 Urine Bilirubin Neg (Negative) 09/13/23 23:15 Urine Urobilinogen Neg mg/dL (Negative) 09/13/23 23:15 Ur Leukocyte Esterase Negative (Negative) 09/13/23 23:15 Urine RBC 50-80 /hpf (0-2) H 09/13/23 23:15 Urine WBC None /hpf (0-5) 09/13/23 23:15 Ur Squamous Epith Cells None /hpf (0-5) 09/13/23 23:15 Amorphous Sediment Not Reportable 09/13/23 23:15 Urine Bacteria Trace /hpf (NONE) 09/13/23 23:15 Urine Mucus 2+ /hpf 09/13/23 23:15 Fluid Color Yellow 09/14/23 10:15 Fluid Appearance Clear 09/14/23 10:15 Fluid WBC 241 /uL 09/14/23 10:15 Fluid RBC 0 10^3/uL 09/14/23 10:15 Fluid Hematocrit 0.0 % 09/14/23 10:15 Fld Polynuclear WBCs # 0.019 09/14/23 10:15 Fld Polynuclear WBCs % 7.900 % 09/14/23 10:15 Fl Mononucl WBCs #(Auto) 0.222 09/14/23 10:15 Fl Mononuclear % Auto 92.100 % 09/14/23 10:15 Fld Crystal Laterality Pleural effusion 09/14/23 10:15 Fluid Albumin 2.0 g/dL 09/14/23 10:15 Fluid Creatinine 0.97 (0.7-1.2) 09/14/23 10:15 Pleural pH 7.00 (6.5-7.5) 09/14/23 10:15 Pleural Total Protein 3.2 g/dL 09/14/23 10:15 Pleural LDH 94 U/L 09/14/23 10:15 Pleural Glucose 106.0 mg/dL 09/14/23 10:15 Pleural Triglycerides 10 mg/dL 09/14/23 10:15 Adenovirus (PCR) Not detected (NOT DETECT) 09/13/23 23:08 C. pneumoniae DNA (PCR) Not detected (NOT DETECT) 09/13/23 23:08 Coronavirus 229E (PCR) Not detected (NOT DETECT) 09/13/23 23:08 Human Metapneumovir PCR Not detected (NOT DETECT) 09/13/23 23:08 Influenza A (H1) PCR Not detected (NOT DETECT) 09/13/23 23:08 Influ A (H1/09) PCR Not detected (NOT DETECT) 09/13/23 23:08 Influenza A (H3) PCR Not detected (NOT DETECT) 09/13/23 23:08 Influenza Type A Ag negative (Negative) 09/13/23 16:49 Influenza Type A (PCR) Not detected (NOT DETECT) 09/13/23 23:08 Influenza Type B Ag negative (Negative) 09/13/23 16:49 Influenza Type B (PCR) Not detected (NOT DETECT) 09/13/23 23:08 M. pneumoniae (PCR) Not detected (NOT DETECT) 09/13/23 23:08 Parainfluenza 1 (PCR) Not detected (NOT DETECT) 09/13/23 23:08 Parainfluenza 2 (PCR) Not detected (NOT DETECT) 09/13/23 23:08 Parainfluenza 3 (PCR) Not detected (NOT DETECT) 09/13/23 23:08 Parainfluenza 4 (PCR) Not detected (NOT DETECT) 09/13/23 23:08 RSV Type A (PCR) Not detected (NOT DETECT) 09/13/23 23:08 RSV Type B (PCR) Not detected (NOT DETECT) 09/13/23 23:08 Entero/Rhino (PCR) Not detected (NOT DETECT) 09/13/23 23:08 SARS-CoV-2 (PCR) Not detected (NOT DETECT) 09/13/23 23:08 SARS-CoV-2 Ag (Rapid) negative (Negative) 09/13/23 16:49 Vitals Last Vital Signs Temp 98.9 F 09/15/23 11:11 Pulse 91 09/15/23 11:11 Resp 17 09/15/23 11:11 BP 112/72 09/15/23 11:11 Pulse Ox 94 09/15/23 13:53 O2 Del Method Room Air 09/15/23 11:11 O2 Flow Rate 2 09/15/23 13:53 Discharge Plan Discharge Patient Disposition: Home Condition: Stable Prescriptions: New carvedilol 3.125 mg Tablet 3.125 mg PO BID 30 Days Qty: 60 0RF Lasix 40 mg tablet 20 mg PO QAM 15 Days Qty: 14 0RF (DME) Blood Pressure Kit Kit See Rx Instructions .Route Qty: 1 0RF Rx Instructions: As directed amoxicillin-pot clavulanate 875-125 mg tablet 1 tab PO BID 3 Days Qty: 6 0RF Continued levothyroxine 100 mcg tablet 100 mcg PO QPM Xarelto 20 mg tablet 20 mg PO QPM Discharge Orders: Discharge Order (Routine); Ordered 09/15/23 Ordered By: Isabella Plaza Referrals: Shant Dangelo M.D [Physician] - 09/21/23 1:00 pm Discharge Diet: Cardiac and Low Salt Discharge Activity: Resume usual activity Patient Instructions: Furosemide (By mouth), Carvedilol (By mouth) (Coreg, Coreg CR, Hypertenevide-12.5), Heart Failure (DC), A-fib (Atrial Fibrillation) (DC), COPD (Chronic Obstructive Pulmonary Disease) (DC), Opioid Safety Activity Restrictions/Additional Instructions: Restrict fluid intake to less than 1500 cc, salt intake to less than 2 g daily. Advised to check his weight daily at home. Is advised that weight today would be the dry weight and if body weight increases by around 5 pounds, patient is to take an extra dose of Lasix daily till body weight comes down to weight today. If not able to come down to dry body weight in 1 week, then is to call cardiology office for further recommendations. Patient was counseled in detail to take medications regularly as prescribed. Maintain blood pressure chart at home as directed Discharge Attestations Time Spent in Discharge Care*: greater than 30 min Quality Metrics Clinical Quality Measures [ No reported AMI, CVA or VTE this stay] Coding Level of Care Code Acute Code for Chg Fwd Diagnoses Atrial fibrillation I48.91 Pleural effusion J90 Shortness of breath R06.02 Acute systolic heart failure I50.21 Heart failure type: systolic Heart failure chronicity: acute
[2023-09-19 21:06] LABS: Amylase, Pleural Fluid 41 U/L
== END 2023-09-15 17:40 | disposition home or self-care (01) | DRG 293 ==
LOC: ER 17:58 → MEDSURG 19:01
PROVIDERS: Family Medicine; Admitting Provider Student in an Organized Health Care Education/Training Program; Emergency Provider Emergency Medicine; Visit Provider Student in an Organized Health Care Education/Training Program
DX: I50.23 Acute on chronic systolic (congestive) heart failure (principal); I48.91 Unspecified atrial fibrillation; E03.9 Hypothyroidism, unspecified; T38.1X6A Underdosing of thyroid hormones and substitutes, initial encounter; I08.1 Rheumatic disorders of both mitral and tricuspid valves; Z11.52 Encounter for screening for COVID-19; Z91.128 Patient's intentional underdosing of medication regimen for other reason
CPT/HCPCS: 32555; 36415; 71045; 71250; 80053; 80061; 80503; 81001; 82042; 82150; 82570; 82945; 83036; 83615; 83735; 83880; 83986; 84100; 84145; 84157; 84439; 84443; 84478; 84481; 84484; 85014; 85025; 85610; 85651; 86140; 87015; 87040; 87070; 87075; 87086; 87116; 87205; 87206; 87426; 87486; 87581; 87633; 87801; 87804; 88112; 89050; 93005; 93306; 94664; 94760; 96365; 96367; 96375; 99285; C9113; J0456; J0696; J1940; J7050

== ENCOUNTER → 2023-09-21 12:47 | Outpatient (BNVA) | payer MEDICARE, SELFPAY | PROVIDERS: PCP Nurse Practitioner; Visit Provider Internal Medicine | DX: I48.91 Unspecified atrial fibrillation (principal); I50.21 Acute systolic (congestive) heart failure; I34.0 Nonrheumatic mitral (valve) insufficiency; Z79.01 Long term (current) use of anticoagulants | CPT/HCPCS: 99204 ==

== ENCOUNTER 2023-09-28 08:51 | Outpatient (CLI) | payer MEDICARE, SELFPAY ==
--- NOTE | 2023-09-28 | ECG_ITS ---
[facility] Test Date: 2023-09-28 Pat Name: Justin Montgomery Department: Room: Gender: Male Process Consultant: : 1940 Requested By: Shant Dangelo Order Number: [id number] Arabella MD: Shant Dangelo M.D. Interpretive Statements NAME OF STUDY: LEXISCAN SESTAMIBI STRESS TEST INDICATION: [Chest Pain; Shortness of Breath] Procedure: At the baseline, the blood pressure was 124/87 mmHg with a heart rate of 89 bpm. The electrocardiogram showed atrial fibrillation with no significant ST-T wave changes. The Lexiscan was infused over a period of 20 seconds. A total of 0.4 mg of Lexiscan was infused. The stress phase was continued for a total of 5 minutes. Heart rate was at the end of stress phase was 99 bpm and a blood pressure of 110/89 mmHg. The EKG at the peak infusion revealed atrial fibrillation with no significant ST-T wave changes. Sestamibi was injected 20 seconds after the Lexiscan infusion. Blood pressure at the end of recovery phase was 118/64 mmHg with a heart rate of 87 bpm. Conclusion: 1. Normal EKG response to Lexiscan infusion 2. No Lexiscan induced chest pain or cardiac arrhythmia. 3. Normal blood pressure and heart rate response. 4. Sestamibi/sestamibi perfusion scan pending; see separate report. Electronically Signed On 09-28-2023 13:27:49 CDT by Shant Dangelo M.D. [id number]
[2023-09-28 09:17] VITALS: BMI 28.8
--- NOTE | 2023-09-28 09:23 | NMCV_ITS ---
NM jose perf SPECT r/s* [id number] Justin Montgomery Age: 83 Gender: M : 1940 Exam Date: 09/28/2023 10:29 Ordering Phys: Shant Dangelo M.D ([email or web address]) Technologist: ADAMA Renner Exam Location: [facility] Indications: SHORTNESS OF BREATH STRESS TEST Please see separate stress test report in [facility] for full findings IMAGE PROTOCOL Rest/Stress 1 Lexiscan Day Radiopharmaceutical Dose (mCi) Administration Site Administered by Rest: Tc-99m 10.6 IV ADAMA Angela Sestamibi Stress:Tc-99m 32.3 IV ADAMA Angela Sestamibi Rest: 28-Sep-2023 60 Discovery 630 Stress: 28-Sep-2023 30 Discovery 630 0.4mg Lexiscan. Supine position only as patient was unable to lay prone. SPECT RESULTS Technical Quality: Excellent Raw Data Analysis: Normal Image Corrections: No attenuation or motion correction applied Summed Stress Score: 0 Summed Rest Score: 1 Summed Difference Score: 0 PERFUSION FINDINGS SPECT images demonstrate homogeneous tracer distribution throughout the myocardium. FUNCTIONAL RESULTS (calculated via Gated SPECT) Stress Image LV EF (%): 57 Stress EDV (mL):102 TID: 1 Stress ESV (mL):44 FUNCTIONAL FINDINGS: There is normal left ventricular systolic function. IMPRESSIONS 1. Normal myocardial perfusion imaging with no evidence of ischemia. 2. LV systolic function is normal. Shant Dangelo MD (Electronically Signed) Final Date: 28 September 2023 11:46 S
[2023-09-28] MEDS: regadenoson 0.4 Mg/5 ml Syringe 0.400000000000000022 MG IVP (11:00)
[2023-09-28 11:07] VITALS: BP 118/64; PULSE 98
== END 2023-09-28 08:52 | disposition home or self-care (01) ==
PROVIDERS: PCP Nurse Practitioner; Visit Provider Internal Medicine
DX: R06.02 Shortness of breath (principal)
CPT/HCPCS: 36415; 78452; 93017; 96374; A9500; J2785

== ENCOUNTER 2023-10-20 10:21 | Day surgery (SDC) | payer MEDICARE, SELFPAY ==
[2023-10-20] VITALS (8 sets, daily range): BP systolic 101–121; BP diastolic 61–90; PULSE 68–87; RESP 10–18; TEMP 36.2–36.7; O2SAT 92–97; BMI 29.3
[2023-10-20] MEDS: sodium chloride 0.9% 1,000 ML 30 ML IV (11:12)
--- NOTE | 2023-10-20 11:41 | USCV_ITS ---
Justin Montgomery Age: 83 Gender: M : 1940 Exam Date: 10/20/2023 12:10 Ordering Phys: Shant Dangelo M.D ([email or web address]) Technologist: LUIS Exam Location: [facility] Indication: MVI BP: 5 / 8 HR: 85 Rhythm: Sinus Technical Quality: Good MEASUREMENTS (Male / Female) Normal Values Medications Per anesthesia team Complications None Proc. Components After Anesthesia team sedated patient, we proceeded with advancing ELLYN probe and obtaining images. FINDINGS Left Ventricle LV systolic function is mildly reduced Right Ventricle Normal in size and function Right Atrium Normal in size Left Atrium Appears to be dilated. LA Appendage No left atrial appendage thrombus. IA Septum Has PFO with interatrial shunting noted on the bubble study. Mitral Valve Mild anterior mitral valve leaflet prolapse. Moderate, posteriorly directed eccenteric regurgitation. Aortic Valve Aortic valve is thickened. Has mild aortic regurgitation Tricuspid Valve Grossly normal Pulmonic Valve Grossly normal Pericardium Normal Aorta Mild atherosclerotic plaque CONCLUSIONS LV systolic function is mildly reduced. Left atrium appears to be dilated. Patient has PFO with interatrial shunting noted on bubble study. Mild anterior mitral valve leaflet prolapse. Moderate, posteriorly directed eccenteric regurgitation. Mild aortic regurgitation Mild aortic atherosclerotic plaque Shant Dangelo MD (Electronically Signed) Final Date: 22 Oct 2023 10:59 S
--- NOTE | 2023-10-20 11:44 | ANES.PREANE2 ---
Pre-Anesthetic Assessment Height/Weight: Height 1.73 m Weight 87.543 kg Temp Pulse Resp BP Pulse Ox O2 Del Method 98.0 F 87 18 121/87 95 Room Air 10/20/23 10:45 10/20/23 10:45 10/20/23 10:45 10/20/23 10:45 10/20/23 10:45 10/20/23 10:45 Operation Date: 10/20/23 12:00 Proposed Procedures p ELLYN(Not Applicable) - Flor Morelos anesthetic complications: None Was Beta Beata taken within 24 hours: Yes Was Clonidine taken within 24 hours: N/A Last intake: Intake Last Liquid Date 10/19/23 Last Liquid Time 18:00 Last Solid Date 10/19/23 Last Solid Time 18:00 Social No alcohol and No tobacco Exam alert, oriented x 3, clear to auscultation bilaterally and regular rate & rhythm Airway Mallampati: Class III Dentition: full CV/HEM Congestive Heart Failure and Hypertension Anesthetic Plan ASA status: 4 Anesthesia: MAC Risk of > 500 ml blood loss (7ml/kg in children): No Medications/Allergies Home Medications Medication Instructions Recorded Confirmed Last Taken Type levothyroxine 100 mcg tablet 100 mcg PO QPM 09/14/23 10/20/23 10/20/23 07:00 History rivaroxaban 20 mg tablet (Xarelto) 20 mg PO QPM 09/14/23 10/20/23 10/20/23 07:00 History blood pressure monitor (Blood #1 ea 09/15/23 10/20/23 10/20/23 07:00 Rx Pressure Kit) carvedilol 3.125 mg tablet 3.125 mg PO BID #180 tabs 10/09/23 10/20/23 10/20/23 07:00 Rx furosemide 40 mg tablet (Lasix) 20 mg (1/2 x 40 mg) PO QAM #45 tabs 10/09/23 10/20/23 10/20/23 07:00 Rx Allergies Allergy/AdvReac Type Severity Reaction Status Date / Time No Known Allergies Allergy Verified 10/18/23 12:32 Current Medications Generic Name Dose Route Start Last Admin Trade Name Freq PRN Reason Stop Dose Admin Sodium Chloride 1,000 mls @ 30 mls/hr 10/20/23 10:45 10/20/23 11:12 Sodium Chloride 0.9% IV 10/21/23 10:44 30 mls/hr .Q24H JAKY Administration PFSH Anesthesia Medical History Shortness of breath Atrial fibrillation Surgical History No pertinent past surgical history Family History Mother Rheumatic fever CAD (coronary artery disease) Social History Smoking and tobacco/nicotine status: never used tobacco/nicotine Alcohol intake: never Substance/Drug Use: never Data Anesthesia Cardiac Studies: Echocardiogram 09/13/23 Sestamibi Stress Test (Cardiology) 09/28/23
--- NOTE | 2023-10-20 11:59 | W.PM.OPSUD ---
Surgery/Procedure H&P Update DATE OF PROCEDURE: October 20, 2023 DATE H&P PERFORMED: 09/21/23 H&P UPDATE INFORMATION: I have reviewed H&P completed within last 30 days, I have examined patient prior to procedure and No changes to prior documentation PREOP DIAGNOSIS: Mitral regurgitation/ mitral valve prolapse PRIMARY INDICATION FOR PROCEDURE: Mitral regurgitation/ mitral valve prolapse PLANNED PROCEDURE: Operation Date: 10/20/23 12:00 Proposed Procedures p ELLYN(Not Applicable) - Sahnt Dangelo M.D Anesthesia team present for sedation
--- NOTE | 2023-10-20 12:38 | SUR.PHASEI ---
Patient in pacu with NC in place at 5L with sat at 95%. Patient asleep. no pain per faces.
--- NOTE | 2023-10-20 12:46 | SUR.PHASEI ---
patient awake. still has NC with sats at 97%. states no pain
--- NOTE | 2023-10-20 13:25 | ANE.PACU2 ---
Inpatient post-anesthesia follow up: Airway intact: Yes Vital signs: Temperature 97.6 F Pulse Rate 74 Respiratory Rate 18 Blood Pressure 113/90 Pulse Oximetry 97 Oxygen Delivery Me thod Room Air Oxygen Flow Rate 5 Fraction of Inspir ed Oxygen Hydration adequate: Yes Nausea and vomiting: No Pain level: 1 Mental status: Baseline
== END 2023-10-20 13:25 | disposition home or self-care (01) ==
PROVIDERS: PCP Nurse Practitioner; Visit Provider Internal Medicine
PROC: (CPT 93312; principal; 2023-10-20 12:00)
DX: I34.0 Nonrheumatic mitral (valve) insufficiency (principal); I34.1 Nonrheumatic mitral (valve) prolapse; I48.91 Unspecified atrial fibrillation; I50.21 Acute systolic (congestive) heart failure; I11.0 Hypertensive heart disease with heart failure
CPT/HCPCS: J2704; J7030

== ENCOUNTER → 2023-11-02 09:54 | Outpatient (BNVA) | payer MEDICARE, SELFPAY | PROVIDERS: PCP Nurse Practitioner; Visit Provider Nurse Practitioner Family | DX: I48.21 Permanent atrial fibrillation (principal); Z87.891 Personal history of nicotine dependence; Z79.01 Long term (current) use of anticoagulants | CPT/HCPCS: 99214 ==

== ENCOUNTER 2023-11-08 14:43 | Outpatient (CLI) | payer MEDICARE, SELFPAY ==
[2023-11-08 16:39] LABS: Anion Gap 14.4 (5-19); Blood Urea Nitrogen 33 mg/dL (8-23); Calcium 9.5 mg/dL (8.5-10.5); Carbon Dioxide 25 mmol/L (22-29); Chloride 104 mmol/L (98-107); Glucose 94 mg/dL (65-115); NT Pro B Type Natriuretic Pept 719 pg/mL (0-450); Osmolality Calculated 295 mOsm/kg (285-295); Potassium 4.4 mmol/L (3.5-5.1); Sodium 139 mmol/L (136-145)
== END 2023-11-08 14:44 | disposition home or self-care (01) ==
LOC: LAB 14:45
PROVIDERS: PCP Nurse Practitioner; Visit Provider Nurse Practitioner Family
DX: I50.21 Acute systolic (congestive) heart failure (principal)
CPT/HCPCS: 36415; 80048; 83880

== ENCOUNTER → 2023-11-16 10:52 | Outpatient (BNVA) | payer MEDICARE, SELFPAY | PROVIDERS: PCP Nurse Practitioner; Visit Provider Nurse Practitioner Family | DX: I48.21 Permanent atrial fibrillation (principal); I50.21 Acute systolic (congestive) heart failure; Z87.891 Personal history of nicotine dependence; Z79.01 Long term (current) use of anticoagulants | CPT/HCPCS: 36415; 80048; 83880; 99214 ==

== ENCOUNTER → 2024-01-25 12:43 | Outpatient (BNVA) | payer MEDICARE, SELFPAY | PROVIDERS: PCP Nurse Practitioner; Visit Provider Internal Medicine | DX: I48.21 Permanent atrial fibrillation (principal); I50.21 Acute systolic (congestive) heart failure; I34.0 Nonrheumatic mitral (valve) insufficiency; Z79.01 Long term (current) use of anticoagulants | CPT/HCPCS: 99214 ==

== ENCOUNTER 2024-04-19 15:28 | Emergency (ER) | payer MEDICARE, SELFPAY ==
[2024-04-19 15:48] VITALS: BP 109/71; PULSE 100; RESP 18; TEMP 36.8; O2SAT 96
--- NOTE | 2024-04-19 16:02 | XR_ITS ---
WS: [id number] XR chest 1V portable [id number] REASON FOR EXAM: Shortness of breath FINDINGS: Compared to the previous examination of 09/14/2023, the patient has reaccumulated a large right pleural effusion with atelectasis in the right lower lung. Again noted is extensive pericardial calcification and cardiomegaly. There may be mild pulmonary veno us congestion. No pulmonary edema. XR/XR chest 1V portable [id number] IMPRESSION: Reaccumulation of large right pleural effusion and right lower lobe atelectasis .
[2024-04-19 16:46] LABS: Basophils % 0.4 %; Eosinophils # 0.1 10^3/uL (0.0-0.8); Eosinophils % 0.7 %; Hematocrit 39.9 % (37-53); Lymphocytes # 0.5 10^3/uL (0.8-4.8); Lymphocytes % 6.9 %; Mean Corpuscular HGB Conc 31.3 g/dL (30-55); Mean Corpuscular Hemoglobin 31.8 pg (27-33); Mean Corpuscular Volume 101.5 fl (82-101); Monocytes % 13.2 %; Neutrophils # 5.94 10^3/uL (1.8-7.7); Neutrophils % 78.4 %; Nucleated Red Blood Cells % 0 %; Platelet Count 196 10^3/cmm (157-399); Red Blood Count 3.93 10^6/uL (3.85-5.65); Red Cell Distribution Width 13.3 % (12.1-15.1); White Blood Count 7.57 10^3/uL (3.29-11.43)
--- NOTE | 2024-04-19 16:56 | ECG_ITS ---
[facility]: [facility]24[facility] Pat Name: Justin Montgomery Department: Room: Gender: Male Supervisor [employer]: : 1940 Requested By: Liliana Lamar Order Number: [id number] Arabella MD: Rishi Breaux M.D. Measurements Intervals [place] Rate: 92 P: 0 MA: 0 QRS: 110 QRSD: 84 T: -30 QT: 386 QTc: 479 Interpretive Statements ATRIAL FIBRILLATION MINIMAL ST DEPRESSION [0.025+ mV ST DEPRESSION] ABNORMAL QRS-T ANGLE [QRS-T AXIS DIFFERENCE > 60] Compared to ECG 09/13/2023 22:46:57 Ventricular premature complex(es) no longer present Electronically Signed On 04-19-2024 17:45:32 GROUND WOOD SUPERVISOR by Rishi Breaux M.D. [id number]
[2024-04-19 16:59] LABS: INR 2.86 (0.8-1.2)
[2024-04-19 17:00] LABS: Partial Thromboplastin Time 45.8 SECONDS (23.9-36.7)
[2024-04-19 17:06] LABS: Troponin(5th) Baseline 8 ng/L (0-15)
[2024-04-19 17:13] LABS: Alanine Aminotransferase 16 U/L (0-41); Albumin Level 4.2 g/dL (3.5-5.2); Alkaline Phosphatase 262 U/L (40-130); Anion Gap 18.1 (5-19); Aspartate Amino Transferase 21 U/L (0-40); Blood Urea Nitrogen 19 mg/dL (8-23); Carbon Dioxide 26 mmol/L (22-29); Chloride 100 mmol/L (98-107); Creatinine Clr Calc Pharmacy 55.4328; Globulin 2.9 g/dL (1.3-4.6); Glucose 101 mg/dL (65-115); NT Pro B Type Natriuretic Pept 1073 pg/mL (0-450); Osmolality Calculated 292 mOsm/kg (285-295); Potassium 4.1 mmol/L (3.5-5.1); Sodium 140 mmol/L (136-145); Total Bilirubin 1.2 mg/dL (0.15-1.2); Total Protein 7.1 g/dL (6.6-8.7)
--- NOTE | 2024-04-19 18:03 | ECG_ITS ---
[facility] Date: 2024-04[facility]19 Pat Name: Justin Montgomery Department: Room: Gender: Male Junior High School Teacher: : 1940 Requested By: Liliana Lamar Order Number: [id number] Arabella MD: Rishi Breaux M.D. Measurements Intervals [place] Rate: 102 P: 0 MN: 0 QRS: 109 QRSD: 81 T: -33 QT: 356 QTc: 465 Interpretive Statements ATRIAL FIBRILLATION WITH RAPID VENTRICULAR RESPONSE RIGHT AXIS DEVIATION [QRS AXIS > 100] LOW QRS VOLTAGE IN PRECORDIAL LEADS [QRS DEFLECTION < 1.0 mV IN CHEST LEADS] MINIMAL ST DEPRESSION [0.025+ mV ST DEPRESSION] Compared to ECG 04/19/2024 16:56:24 No significant change Electronically Signed On 04-19-2024 18:13:00 BASKET ASSEMBLER by Rishi Breaux M.D. [id number]
[2024-04-19 18:45] LABS: Troponin 5 2HR 7.91 ng/L (0-15)
[2024-04-19 18:49] LABS: Troponin 5 2HR Delta -0.09 ABS# (0-10)
--- NOTE | 2024-04-19 19:45 | ED_ITS ---
HPI - SOB/Dyspnea 2 General: Chief Complaint: Shortness of Breath/Dyspnea Stated Complaint: fluid in lungs([facility] client) Time Seen by Provider: 04/19/24 19:32 History of Present Illness: HPI Narrative: Arrives to the ER from [facility] complaining of fluid on his right lung on x-ray today. Their office was concerned that he had an extensive amount of fluid. Patient said he is only mildly short of breath and mildly fatigued. He has had had fluid drained a few times from his right lung. Patient is not on oxygen he is satting 96% on room air. Patient labs reviewed with patient as well as x-ray. Patient states he feels good and if he can wait till Monday. Will have the patient come back on Monday as an outpatient and have a drain. Patient denies any coughs colds fevers chills. Patient has a known history of CHF, A-fib, Related Data Home Medications Medication Instructions Recorded Confirmed levothyroxine 100 mcg tablet 100 mcg PO QPM 09/14/23 01/25/24 Previous Rx's Medication Instructions Recorded blood pressure monitor (Blood #1 ea 09/15/23 Pressure Kit) metoprolol succinate 25 mg 25 mg PO DAILY #30 tabs 11/02/23 tablet,extended release 24 hr furosemide 20 mg tablet (Lasix) 20 mg PO DAILY #90 tabs 01/25/24 rivaroxaban 20 mg tablet (Xarelto) 20 mg PO QPM #90 tabs 01/25/24 Allergies Allergy/AdvReac Type Severity Reaction Status Date / Time No Known Allergies Allergy Verified 04/19/24 15:53 Review of Systems 2 General: Reports: 10 or more systems reviewed and unremarkable except in HPI and below PFSH ED 2 PFSH: Medical History Shortness of breath Atrial fibrillation Surgical History No pertinent past surgical history Family History Mother Rheumatic fever CAD (coronary artery disease) Social History Smoking and tobacco/nicotine status: former use of tobacco/nicotine Alcohol intake: never Substance/Drug Use: never Physical Exam 2 Const: COMMON NORMALS: no acute distress, average body habitus, patient oriented x3, no limitations, healthy appearing, alert and well nourished HENMT: COMMON NORMALS: normocephalic, atraumatic, hearing grossly normal bilaterally, external ears normal, Normal external nose present and moist oral mucous membranes HEAD & SCALP: normocephalic and atraumatic NOSE: Normal external nose present EXTERNAL EAR: Yes external ears normal Neck/C-Spine: COMMON NORMALS: full ROM, no lymphadenopathy, supple, no meningeal signs, no JVD and Thyroid normal THYROID: Thyroid normal Chest: COMMONS NORMALS: normal inspection of the chest and normal palpation of entire chest wall Resp: COMMON NORMALS: normal respiratory effort, No retractions and No use of accessory muscles; negative for clear to auscultation bilaterally (Decreased breath sounds on right side) AUSCULTATION: not clear to auscultation bilaterally (Decreased breath sounds on right side) Cardio: COMMON NORMALS: no JVD, regular rate, regular rhythm, S1 normal heart sound present, S2 normal heart sound present, No gallops present (Cardio), No clicks present (Cardio) and No rub (Cardio) RATE: regular rate RHYTHM: r egular rhythm HEART SOUNDS: S1 normal heart sound present and S2 normal heart sound present GI: COMMON NORMALS: Normal to inspection, nondistended, normoactive bowel sounds present, Soft to palpation, non-tender, No hepatosplenomegaly present and no masses PALPATION: Yes Soft to palpation and Yes No hepatosplenomegaly present Neuro: COMMON NORMALS: patient oriented x3 SENSORIUM/ORIENTATION: Yes alert MENINGEAL SIGNS: Yes no meningeal signs Course 2 Vital Signs: Vital signs: Vital Signs Temperature 98.2 F 04/19/24 15:48 Pulse Rate 94 04/19/24 20:17 Respiratory Rate 18 04/19/24 15:48 Blood Pressure 167/89 04/19/24 20:17 Pulse Oximetry 96 04/19/24 20:17 Oxygen Delivery Me thod Room Air 04/19/24 15:48 MDM - SOB/Dyspnea Medical Decision Making Patient is a large right pleural effusion, patient is satting 96% on room air. Patient is stable to come back on Monday to have an outpatient thoracentesis. We will put in the orders. Patient is agreeable. Medical Records I reviewed the patient's medical records. Lab Data I reviewed the patient's lab results. 04/19/24 16:21 04/19/24 16:21 Labs/Radiology: Radiology Impressions Chest X-Ray 04/19/24 16:02 IMPRESSION: Reaccumulation of large right pleural effusion and right lower lobe atelectasis. Laboratory Results WBC 7.57 10^3/uL (3.29-11.43) 04/19/24 16:21 RBC 3.93 10^6/uL (3.85-5.65) 04/19/24 16:21 Hgb 12.50 g/dL (11.27-16.99) 04/19/24 16:21 Hct 39.9 % (37-53) 04/19/24 16:21 MCV 101.5 fl (82-101) H 04/19/24 16:21 MCH 31.8 pg (27-33) 04/19/24 16:21 MCHC 31.3 g/dL (30-55) 04/19/24 16:21 RDW 13.3 % (12.1-15.1) 04/19/24 16:21 Plt Count 196 10^3/cmm (157-399) 04/19/24 16:21 MPV 10.0 fL (7.4-10.4) 04/19/24 16:21 Neut % (Auto) 78.4 % 04/19/24 16:21 Lymph % (Auto) 6.9 % 04/19/24 16:21 [place] % (Auto) 13.2 % 04/19/24 16:21 Eos % (Auto) 0.7 % 04/19/24 16:21 Baso % (Auto) 0.4 % 04/19/24 16:21 Neut # (Auto) 5.94 10^3/uL (1.8-7.7) 04/19/24 16:21 Lymph # (Auto) 0.5 10^3/uL (0.8-4.8) L 04/19/24 16:21 [place] # (Auto) 1.0 10^3/uL (0.2-0.9) H 04/19/24 16:21 Eos # (Auto) 0.1 10^3/uL (0.0-0.8) 04/19/24 16:21 Baso # (Auto) 0.0 10^3/uL (0.0-0.1) 04/19/24 16:21 Nucleated RBC % (auto) 0 % 04/19/24 16:21 Nucleated RBCs # 0.0 /100WBC 04/19/24 16:21 PT 31.00 SECONDS (12.1-14.9) H 04/19/24 16:21 INR 2.86 (0.8-1.2) H 04/19/24 16:21 APTT 45.8 SECONDS (23.9-36.7) H 04/19/24 16:21 Sodium 140 mmol/L (136-145) 04/19/24 16:21 Potassium 4.1 mmol/L (3.5-5.1) 04/19/24 16:21 Chloride 100 mmol/L (98-107) 04/19/24 16:21 Carbon Dioxide 26 mmol/L (22-29) 04/19/24 16:21 Anion Gap 18.1 (5-19) 04/19/24 16:21 BUN 19 mg/dL (8-23) 04/19/24 16:21 Creatinine 1.1 mg/dL (0.7-1.2) 04/19/24 16:21 GFR Calculation Not Reportable 04/19/24 16:21 Glucose 101 mg/dL (65-115) 04/19/24 16:21 Calculated Osmolality 292 mOsm/kg (285-295) 04/19/24 16:21 Calcium 9.0 mg/dL (8.5-10.5) 04/19/24 16:21 Total Bilirubin 1.2 mg/dL (0.15-1.2) 04/19/24 16:21 AST 21 U/L (0-40) 04/19/24 16:21 ALT 16 U/L (0-41) 04/19/24 16:21 Alkaline Phosphatase 262 U/L (40-130) H 04/19/24 16:21 Troponin T Baseline 8 ng/L (0-15) 04/19/24 16:21 Troponin T 120 Minute 7.91 ng/L (0-15) 04/19/24 18:11 Delta Troponin T -0.09 ABS# (0-10) L 04/19/24 18:11 NT-Pro-B Natriuret Pep 1073 pg/mL (0-450) H 04/19/24 16:21 Total Protein 7.1 g/dL (6.6-8.7) 04/19/24 16:21 Albumin 4.2 g/dL (3.5-5.2) 04/19/24 16:21 Globulin 2.9 g/dL (1.3-4.6) 04/19/24 16:21 All radiology interpretation(s) finalized by discharge Discharge Plan Discharge Patient Disposition: Home Clinical Impression: Pleural effusion Condition: Stable Prescriptions: No Action metoprolol succinate 25 mg tablet extended release 24 hr 25 mg PO DAILY Qty: 30 3RF Xarelto 20 mg tablet 20 mg PO QPM Qty: 90 3RF furosemide [Lasix] 20 mg tablet 20 mg PO DAILY Qty: 90 3RF levothyroxine 100 mcg tablet 100 mcg PO QPM (DME) blood pressure monitor [Blood Pressure Kit] Kit See Rx Instructions .Route Qty: 1 0RF Rx Instructions: As directed Discharge Orders: Discharge ED (Routine); Ordered 04/19/24 Ordered By: Ashwin Rivas Referrals: Markos Cabrera FNP [Primary Care Provider] - 1 week Patient Instructions: Pleural Effusion Activity Restrictions/Additional Instructions: Your x-ray showed you have a large right pleural effusion, this is fluid in your lung, you are stable to have this drained just as an outpatient. Your case will be referred to case management. They will call you Monday morning to schedule this probably sometime later Monday. Coding Level of Care Code ED Tool Machinist for Lolita Martinez
[2024-04-19 20:17] VITALS: BP 167/89; PULSE 94; O2SAT 96
== END 2024-04-19 20:19 | disposition home or self-care (01) ==
PROVIDERS: Emergency Medicine; Emergency Provider Emergency Medicine; PCP Nurse Practitioner
DX: J90 Pleural effusion, not elsewhere classified (principal); Z87.891 Personal history of nicotine dependence
CPT/HCPCS: 36415; 71045; 80053; 83880; 84484; 85025; 85610; 85730; 93005; 99285

== ENCOUNTER → 2024-04-25 11:21 | Day surgery (SDC) | payer MEDICARE, SELFPAY ==
--- NOTE | 2024-04-25 11:46 | US_ITS ---
WS: [id number] ULTRASOUND-GUIDED THORACENTESIS CLINICAL INFORMATION: Right pleural effusion PROCEDURE: Informed consent: The risks, benefits, and alternatives of the procedure were discussed with the toney ent. Verbal and written consent was obtained. Timeout: A timeout was performed to confirm the correct patient, procedure, and site. Site: RIGHT chest Preparation: A suitable skin site was identified. The patient was prepped and draped in usual sterile fashion. Lidocaine 1% was used for local anesthesia. Catheter: 4 Romansh One-Step catheter. Fluid Volume: 800 ml Color: Bloody Discarded safely. Sent to the laboratory for analysis. Complications: None. Patient disposition: Discharged from the department in stable condition. / thoracentesis [id number] IMPRESSION: Uncomplicated ultrasound-guided RIGHT thoracentesis. 800 cc of bloody fluid rem brittaney. Pleural effusion with septations today.
[2024-04-25 11:51] VITALS: BP 114/70; PULSE 94; RESP 18; TEMP 36.6; O2SAT 96; BMI 29.0
[2024-04-25 13:01] VITALS: BP 132/86; PULSE 103; RESP 18; O2SAT 96
--- NOTE | 2024-04-25 13:02 | XR_ITS ---
WS: [id number] CHEST XRAY TECHNIQUE: Portable chest. CLINICAL INFORMATION: Post thoracentesis COMPARISON: None. FINDINGS: Patient is rotated. Heart: Cardiomegaly. Pericardial calcification. Lungs: Improved RIGHT pleural effusion. No pneumothorax. Persistent consolidation RIGHT lower lobe wi th pleural thickening. Bones: Osteopenia. XR/XR chest 1V portable [id number] IMPRESSION: Improved RIGHT pleural effusion postthoracentesis. No pneumothorax. Persistent consolidation RIGHT lower lobe.
[2024-04-25 13:56] LABS: INR 1.27 (0.8-1.2)
== END ==
PROVIDERS: Radiology Neuroradiology; PCP Nurse Practitioner; Visit Provider Emergency Medicine
PROC: (CPT 32554; principal; 2024-04-25 13:00)
DX: J90 Pleural effusion, not elsewhere classified (principal)
CPT/HCPCS: 32555; 36415; 71045; 85610

== ENCOUNTER 2024-04-30 16:01 | Emergency (ER) | payer MEDICARE, SELFPAY ==
[2024-04-30 16:02] VITALS: BP 126/89; PULSE 89; RESP 18; TEMP 36.7; O2SAT 97; BMI 27.4
--- NOTE | 2024-04-30 16:22 | XRR_ITS ---
PROCEDURE INFORMATION: Exam: XR Chest Exam date and time: 04/30/2024 4:37 PM Age: 83 years old Clinical indication: Shortness of breath and other: Fluid; Additional info: SOB TECHNIQUE: Imaging protocol: Radiologic exam of the chest. Views: 2 views. COMPARISON: CR XR chest 1V portable [id number] 04/25/2024 1:20 PM FINDINGS: Lungs: See Pleural spaces finding. Pleural spaces: There is a persistent large loculated right-sided pleural effusion along with pleural thickening and right basilar atelectasis. The left hemithorax appears normal. Heart/Mediastinum: Unremarkable. No cardiomegaly. Bones/joints: Unremarkable. XR/XR chest 2V* [id number] IMPRESSION: Stable right pleural disease
[2024-04-30 18:03] LABS: Basophils % 0.4 %; Eosinophils # 0.1 10^3/uL (0.0-0.8); Eosinophils % 0.7 %; Hematocrit 39.5 % (37-53); Lymphocytes # 0.5 10^3/uL (0.8-4.8); Lymphocytes % 7.1 %; Mean Corpuscular HGB Conc 31.4 g/dL (30-55); Mean Corpuscular Hemoglobin 31.3 pg (27-33); Mean Corpuscular Volume 99.7 fl (82-101); Mean Platelet Volume 9.7 fL (7.4-10.4); Monocytes # 0.9 10^3/uL (0.2-0.9); Monocytes % 12.1 %; Neutrophils # 6.02 10^3/uL (1.8-7.7); Nucleated Red Blood Cells % 0 %; Platelet Count 228 10^3/cmm (157-399); Red Blood Count 3.96 10^6/uL (3.85-5.65); Red Cell Distribution Width 12.9 % (12.1-15.1); White Blood Count 7.61 10^3/uL (3.29-11.43)
[2024-04-30 18:36] LABS: Alanine Aminotransferase 19 U/L (0-41); Albumin Level 3.5 g/dL (3.5-5.2); Alkaline Phosphatase 246 U/L (40-130); Aspartate Amino Transferase 31 U/L (0-40); Blood Urea Nitrogen 15 mg/dL (8-23); Calcium 9.3 mg/dL (8.5-10.5); Carbon Dioxide 27 mmol/L (22-29); Chloride 98 mmol/L (98-107); Creatinine Clr Calc Pharmacy 61.3569; Globulin 4.3 g/dL (1.3-4.6); Glucose 120 mg/dL (65-115); NT Pro B Type Natriuretic Pept 1104 pg/mL (0-450); Osmolality Calculated 286 mOsm/kg (285-295); Sodium 137 mmol/L (136-145); Thyroid Stimulating Hormone 0.74 uIU/mL (0.27-4.20); Total Bilirubin 0.7 mg/dL (0.15-1.2); Total Protein 7.8 g/dL (6.6-8.7)
--- NOTE | 2024-04-30 20:40 | ED_ITS ---
HPI - SOB/Dyspnea 2 General: Chief Complaint: Shortness of Breath/Dyspnea Stated Complaint: primary sent - fluid on lungs/collapsed Time Seen by Provider: 04/30/24 20:32 Source: patient and family Mode of arrival: ambulatory Limitations: no limitations History of Present Illness: HPI Narrative: This patient was referred to the emergency department from his clinic. He has had a history of pleural effusions and has had pleurocentesis in the past. Some days he feels more short of breath and others and during his clinic visit today they thought they saw more of a pleural effusion and was concerned that they could not see lung markings throughout all of his chest x-ray and therefore sent him to the emergency department for further evaluation. He denies any chest pain. He states that given sometimes he gets short of breath with certain exertion and sometimes not. He states he can lie flat in bed without any difficulty. He has a history of atrial fibrillation and apparently had a ablation sometime in the past at [facility] in [place]. He also had a failed Watchman procedure at the same facility. He is unclear as to why he developed a pleural effusion. He has no history of cancer, pulmonary embolus etc. He does take Xarelto for stroke risk reduction because of his history of atrial fibrillation. He denies palpitations syncope etc. He has been faithful to all his medications. He otherwise denies any specific physical complaints. MD elicited complaint: shortness of breath Associated symptoms: Deny abdominal pain, chest pain, fever(s), nausea, palpitations, syncope or vomiting Related Data Home Medications Medication Instructions Recorded Confirmed levothyroxine 100 mcg tablet 100 mcg PO QPM 09/14/23 04/25/24 furosemide 20 mg tablet (Lasix) 20 mg PO DAILY 04/22/24 04/25/24 Previous Rx's Medication Instructions Recorded blood pressure monitor (Blood #1 ea 09/15/23 Pressure Kit) metoprolol succinate 25 mg 25 mg PO DAILY #30 tabs 11/02/23 tablet,extended release 24 hr rivaroxaban 20 mg tablet (Xarelto) 20 mg PO QPM #90 tabs 01/25/24 Allergies Allergy/AdvReac Type Severity Reaction Status Date / Time No Known Allergies Allergy Verified 04/25/24 11:49 Review of Systems 2 General: Reports: 10 or more systems reviewed and unremarkable except in HPI and below Const: Denies: fever(s) or chills Card: Denies: chest pain, palpitations, syncope or pre-syncope Resp: Reports: dyspnea; Denies: productive cough, wheezing or stridor GI: Denies: abdominal pain, nausea, vomiting or diarrhea Joey/Lymph: Reports: easy bruising PFSH ED 2 PFSH: Medical History Shortness of breath Atrial fibrillation Surgical History No pertinent past surgical history Family History Mother Rheumatic fever CAD (coronary artery disease) Social History Smoking and tobacco/nicotine status: former use of tobacco/nicotine Alcohol intake: never Substance/Drug Use: never Physical Exam 2 Narrative: EXAM NARRATIVE: Appears to be in no acute distress he talks in complete sentences without dyspnea. He makes good eye contact and appears to be comfortable. Const: COMMON NORMALS: no acute distress, average body habitus and patient oriented x3 GENERAL APPEARANCE: cooperative and comfortable HENMT: COMMON NORMALS: Normal nasal mucous membranes and turbinates present, moist oral mucous membranes and oropharynx normal NOSE: Normal nasal mucous membranes and turbinates present Eye: COMMON NORMALS: Equal, round and reactive pupils present, EOMs intact bilaterally and conjunctivae normal CONJUNCTIVA: Yes conjunctivae normal P UPIL: Yes Equal, round and reactive pupils present Neck/C-Spine: COMMON NORMALS: full ROM, no JVD and No carotid bruits Chest: COMMONS NORMALS: normal inspection of the chest and normal palpation of entire chest wall Resp: COMMON NORMALS: normal respiratory effort, No retractions and No use of accessory muscles EFFORT & INSPECTION: Yes able to speak in complete sentences AUSCULTATION: no rhonchi, no wheezes and diminished lung sounds on the right in the lower lung brennan PERCUSSION: dullness Lower: right Cardio: COMMON NORMALS: no JVD, regular rate, regular rhythm and Peripheral pulses 2+ throughout RATE: regular rate RHYTHM: regular rhythm HEART SOUNDS: Murmur heart sound present systolic PERIPHERAL PULSES: Peripheral pulses 2+ throughout GI: COMMON NORMALS: Normal to inspection, nondistended, normoactive bowel sounds present and Soft to palpation PALPATION: Yes Soft to palpation : COMMON NORMALS: Yes no CVA tenderness BLADDER/KIDNEY EXAM: Yes no CVA tenderness Back/Pelvis: COMMON NORMALS: no CVA tenderness, thoracic and lumbar spine normal to inspection, no thoracic nor lumbar tenderness and thoraco-lumbar ROM normal Extremity: COMMON NORMALS: normal to inspection, full ROM, capillary refill normal, no calf tenderness and no pedal edema Neuro: COMMON NORMALS: patient oriented x3, moves all extremities and no focal motor deficits CRANIAL NERVES: Yes CN normal except as noted Skin: COMMON NORMALS: no rashes or lesions noted, no wounds and turgor normal GENERAL SKIN EXAM: no rashes or lesions noted and turgor normal Course 2 Vital Signs: Vital signs: Vital Signs Temperature 98.1 F 04/30/24 16:02 Pulse Rate 78 04/30/24 21:30 Respiratory Rate 18 04/30/24 16:02 Blood Pressure 106/68 04/30/24 21:00 Pulse Oximetry 98 04/30/24 21:30 Oxygen Delivery Me thod Room Air 04/30/24 21:30 MDM - SOB/Dyspnea Medical Decision Making This patient was referred to the emerged part by his outpatient clinic because they were concerned about his chest x-ray revealed possible pneumothorax and associated with his chronic pleural effusion. He has been having some shortness of breath which occurs episodically and without predictive factors. He also has a history of chronic atrial fibrillation and had a failed Watchman procedure and is currently taking Xarelto for stroke risk reduction and metoprolol for rate control. There is no associated fevers chills other findings to suggest pneumonia or pulmonary infection. He had no sustained chest pain. He is unsure whether he is in atrial fibrillation and is not aware of palpitations or rapid heart rate. Clinical examination was unrevealing for any concerning findings other than diminished breath sounds in the right lower lobe. Obviously differential was included possible occult pneumothorax, increase in his pleural effusion, pneumonia, worsening heart failure, or rapid ventricular response etc. Chest x-ray was obtained at this facility which revealed a chronic pleural effusion unchanged without any evidence of associated pneumothorax. Previous imaging including a CT scan was also reviewed from past visits. Laboratories are reassuring other than he had a slight elevation in his BNP. His EKG did show that he is in atrial fibrillation and past EKG shows he is had some episodes of rapid ventricular response. Not likely to represent an acute process at this time and what from his clinical presentation suggest he is probably having some intermittent episodes of rapid ventricular response causing him subjective shortness of breath. No indication at this time for further emergency department evaluation. He is followed by his primary care clinic and that is appropriate at this time. He does not have any significant findings to suggest exacerbation of heart failure that requires inpatient care but I did suggest that because of his elevation in his BNP he should take an extra dose of Lasix midday for the next 2 days and see if that also helps his symptoms as well. We also discussed return precautions in detail with both he and his accompanying family. They appreciated our discussion during his emergency department evaluation and acknowledged return precautions. Medical Records I reviewed the patient's medical records. Reviewed previous findings of chronic atrial fibrillation as well as pleural effusion. Lab Data I reviewed the patient's lab results. 04/30/24 17:55 04/30/24 17:55 Labs/Radiology: Radiology Impressions Chest X-Ray 04/30/24 16:22 IMPRESSION: Stable right pleural disease Laboratory Results WBC 7.61 10^3/uL (3.29-11.43) 04/30/24 17:55 RBC 3.96 10^6/uL (3.85-5.65) 04/30/24 17:55 Hgb 12.40 g/dL (11.27-16.99) 04/30/24 17:55 Hct 39.5 % (37-53) 04/30/24 17:55 MCV 99.7 fl (82-101) 04/30/24 17:55 MCH 31.3 pg (27-33) 04/30/24 17:55 MCHC 31.4 g/dL (30-55) 04/30/24 17:55 RDW 12.9 % (12.1-15.1) 04/30/24 17:55 Plt Count 228 10^3/cmm (157-399) 04/30/24 17:55 MPV 9.7 fL (7.4-10.4) 04/30/24 17:55 Neut % (Auto) 79.0 % 04/30/24 17:55 Lymph % (Auto) 7.1 % 04/30/24 17:55 [place] % (Auto) 12.1 % 04/30/24 17:55 Eos % (Auto) 0.7 % 04/30/24 17:55 Baso % (Auto) 0.4 % 04/30/24 17:55 Neut # (Auto) 6.02 10^3/uL (1.8-7.7) 04/30/24 17:55 Lymph # (Auto) 0.5 10^3/uL (0.8-4.8) L 04/30/24 17:55 [place] # (Auto) 0.9 10^3/uL (0.2-0.9) 04/30/24 17:55 Eos # (Auto) 0.1 10^3/uL (0.0-0.8) 04/30/24 17:55 Baso # (Auto) 0.0 10^3/uL (0.0-0.1) 04/30/24 17:55 Nucleated RBC % (auto) 0 % 04/30/24 17:55 Nucleated RBCs # 0.0 /100WBC 04/30/24 17:55 Sodium 137 mmol/L (136-145) 04/30/24 17:55 Potassium 4.0 mmol/L (3.5-5.1) 04/30/24 17:55 Chloride 98 mmol/L (98-107) 04/30/24 17:55 Carbon Dioxide 27 mmol/L (22-29) 04/30/24 17:55 Anion Gap 16.0 (5-19) 04/30/24 17:55 BUN 15 mg/dL (8-23) 04/30/24 17:55 Creatinine 1.0 mg/dL (0.7-1.2) 04/30/24 17:55 GFR Calculation Not Reportable 04/30/24 17:55 Glucose 120 mg/dL (65-115) H 04/30/24 17:55 Calculated Osmolality 286 mOsm/kg (285-295) 04/30/24 17:55 Calcium 9.3 mg/dL (8.5-10.5) 04/30/24 17:55 Total Bilirubin 0.7 mg/dL (0.15-1.2) 04/30/24 17:55 AST 31 U/L (0-40) 04/30/24 17:55 ALT 19 U/L (0-41) 04/30/24 17:55 Alkaline Phosphatase 246 U/L (40-130) H 04/30/24 17:55 NT-Pro-B Natriuret Pep 1104 pg/mL (0-450) H 04/30/24 17:55 Total Protein 7.8 g/dL (6.6-8.7) 04/30/24 17:55 Albumin 3.5 g/dL (3.5-5.2) 04/30/24 17:55 Globulin 4.3 g/dL (1.3-4.6) 04/30/24 17:55 TSH 0.74 uIU/mL (0.27-4.20) 04/30/24 17:55 All radiology interpretation(s) finalized by discharge EKG Data EKG 1: I personally reviewed and interpreted this EKG as follows: Interpretation: Resting EKG reveals atrial fibrillation with a rate of 84 bpm. Normal QRS, corrected QT interval normal axis. No acute ST-T wave changes noted. His rhythm of atrial fibrillation as previously noted on past tracings within our system. Discharge Plan Discharge Patient Disposition: Home Clinical Impression: Loculated pleural effusion, Atrial fibrillation, chronic Condition: Stable Prescriptions: No Action metoprolol succinate 25 mg tablet extended release 24 hr 25 mg PO DAILY Qty: 30 3RF Xarelto 20 mg tablet 20 mg PO QPM Qty: 90 3RF levothyroxine 100 mcg tablet 100 mcg PO QPM (DME) blood pressure monitor [Blood Pressure Kit] Kit See Rx Instructions .Route Qty: 1 0RF Rx Instructions: As directed furosemide [Lasix] 20 mg tablet 20 mg PO DAILY Discharge Orders: Discharge ED (Routine); Ordered 04/30/24 Ordered By: Elliot Craven Referrals: Markos Cabrera, GEAR CUTTING MACHINE SET UP OPERATOR [Primary Care Provider] - Discharge Diet: Low Salt Discharge Activity: Increase activity as tolerated Patient Instructions: Opioid Safety, Pain Management Activity Restrictions/Additional Instructions: As we discussed during your emergency department visit of a condition called a pleural effusion that appears to be chronic in your case. He also have a irregular heartbeat called atrial fibrillation which you have had for many years and it suggest that you are having some intermittent episodes of rapid heart rate that may be causing some of your shortness of breath symptoms. For the next 2 days we recommend taking an extra dose of your Lasix or furosemide 20 mg at approximately 1 to 2 PM in the afternoon. You may do this for 2 days and then resume back to your normal dosing. You should continue all your other usual medications. If you have worsening symptoms or do not have improvement in your symptoms or develop any sustained chest pain fevers chills or other concerning symptoms return to this or the nearest emergency department for reevaluation. Coding Level of Care Code ED River Driver for Lolita Martinez
[2024-04-30 21:00] VITALS: BP 106/68; PULSE 83; O2SAT 100
[2024-04-30 21:30] VITALS: PULSE 78; O2SAT 98
--- NOTE | 2024-04-30 21:33 | ECG_ITS ---
[employer] Test Date: 2024-04-30 Pat Name: Justin Montgomery Department: Room: Gender: Male Paper Sales Representative: : 1940 Requested By: Elliot Craven Order Number: [id number] Arabella MD: MAGDALENA MCKEON Measurements Intervals [place] Rate: 84 P: 0 ND: 0 QRS: 62 QRSD: 85 T: -18 QT: 362 QTc: 430 Interpretive Statements ATRIAL FIBRILLATION LOW QRS VOLTAGE IN EXTREMITY LEADS [QRS DEFLECTION < 0.5 mV IN LIMB LEADS] ABNORMAL QRS-T ANGLE [QRS-T AXIS DIFFERENCE > 60] Compared to ECG 04/19/2024 18:03:41 Right-axis deviation no longer present ST (T wave) deviation no longer present Electronically Signed On 05-01-2024 18:09:30 HYPOID GEAR GENERATOR by MAGDALENA MCKEON [email or web address]
[2024-04-30 22:00] VITALS: BP 119/70; PULSE 84; RESP 18
[2024-04-30 22:29] VITALS: BP 119/70; PULSE 82; O2SAT 93
== END 2024-04-30 22:36 | disposition home or self-care (01) ==
PROVIDERS: Emergency Provider Emergency Medicine; PCP Nurse Practitioner
DX: J90 Pleural effusion, not elsewhere classified (principal); I48.20 Chronic atrial fibrillation, unspecified; Z87.891 Personal history of nicotine dependence
CPT/HCPCS: 71046; 80053; 83880; 84443; 85025; 93005; 99285

== ENCOUNTER → 2024-05-22 12:30 | Outpatient (BNVA) | payer MEDICARE, SELFPAY | PROVIDERS: PCP Nurse Practitioner; Visit Provider Internal Medicine | DX: I48.21 Permanent atrial fibrillation (principal); I50.21 Acute systolic (congestive) heart failure; I34.0 Nonrheumatic mitral (valve) insufficiency; Z87.891 Personal history of nicotine dependence; Z79.01 Long term (current) use of anticoagulants | CPT/HCPCS: 99214 ==

== ENCOUNTER → 2024-06-19 13:11 | Outpatient (BNVA) | payer MEDICARE, SELFPAY | PROVIDERS: PCP Nurse Practitioner; Visit Provider Internal Medicine | DX: I48.21 Permanent atrial fibrillation (principal); I50.21 Acute systolic (congestive) heart failure; I34.0 Nonrheumatic mitral (valve) insufficiency; Z87.891 Personal history of nicotine dependence; Z79.01 Long term (current) use of anticoagulants | CPT/HCPCS: 99214 ==